=== PATIENT | male | born 2005 | race Caucasian/White ===

== ENCOUNTER 2025-05-18 19:43 | Inpatient (IN) | payer MEDICAID, SELFPAY ==
--- OUTSIDE RECORDS SUMMARY | 2020-11-16 03:00 | XMS_ITS | Continuity of Care Document ---
Author Organization [facility] Address [address] [id number] [address] Phone Care Team Providers Care Instructional Systems Designer Name Role Phone Joaquin Lovelace DDS Unavailable Unavailable Allergies, Adverse Reactions, Alerts Substance Reaction Status Criticality morphine Active No Information Procedures Procedure Date Limited Oral Evaluation Problem Focused EDR Approval Note Advance Directives Directive Yes / No Effective Date File Name No Information Encounters Encounter Description Practice Location Reason(s) For Visit Diagnoses Date Provider Providers Copied on Encounter [facility], [id number], [id number], [place] tel:[phone] [facility] Encounter for dental exam and cleaning w/o abnormal findings Radu Nuñez. [address] [place], [address], [place]. tel:[phone] Referring Provider: Joaquin Bah, [address] [place], [address]. tel:[phone] Family History Family Member Type Diagnosis Age At Onset No Information Payers Payer name Insurance type Covered libertarian ID Authoriza tifady(s) D [employer] CI [id number] Social History Type Description Quantity Date Captured Comments Alcohol Use Details Unknown Caffeine Use Details Unknown Tobacco Use Status No Information Smoking Status No Information Sex Male Sexual Orientation Heterosexual Gender Identity Male Chief Complaint And Reason For Visit No Information Reason For Referral Reason For Referral No Information History Of Present Illness Encounter Date Complaint History Of Prese nt Illness No Information Functional Status Date Functional Assessmen t No Information Instructions Date Instruction Additional Infor mation No Information Assessments Type Assessment Date No Information Patient Care Teams Name Effective Dates (start - stop) Status Members No Information
[2025-05-18 19:46] VITALS: BP 144/87; PULSE 80; RESP 16; TEMP 36.9; O2SAT 95; BMI 27.4
--- NOTE | 2025-05-18 19:46 | W.ED.PSYCHS ---
Documented by User: TONI Funez 05/18/25 20:24 HPI - Psych General: Chief Complaint: Psychiatric Symptoms Stated Complaint: MHE Time Seen by Provider: 05/18/25 19:44 Source: patient Mode of arrival: ambulatory Limitations: no limitations History of Present Illness: Patient is a 19-year-old male presents to ED today for complaint of depression and suicidal ideation. Patient states he went into the [facility] earlier today with a knife with a plan to slit his wrists in a suicide attempt. He had written several suicide notes to his grandmother, mother, and /child. Patient states he is struggling with anger and moods. He states he is trying to work it out with his for the sake of their 5-month-old child. Patient states he is on medications to help with depression. He denies homicidal ideations. Denies hallucinations. He states he does hold down a job at the [employer] [place] in [place] [facility] [place]. complaint: suicidal ideation and feels depressed Onset (ago): day(s) Duration: constant History of same: Yes Relieving factors: none Exacerbating factors: other (family stress) Context: significant life stressor Associated psychiatric symptoms: depression and suicidal ideation Associated symptoms: Reports depression and suicidal ideation; Deny auditory hallucinations, visual hallucinations or homicidal ideation Treatments prior to arrival: none If self harm: admits thoughts of self harm, has plan and has acted on plan Related Data Allergies Allergy/AdvReac Type Severity Reaction Status Date / Time morphine Allergy ALGY-Anaphy Verified 05/18/25 19:55 laxis Review of Systems Const: Denies: fever(s) or chills Card: Denies: chest pain, palpitations, lightheadedness or syncope Resp: Denies: dyspnea GI: Denies: abdominal pain, nausea, vomiting or diarrhea Skin/Breast: Denies: rash Neuro: Denies: headache(s) Psych: Reports: anxiety, depression, hopelessness and suicidal ideation; Denies: visual hallucinations, auditory hallucinations or homicidal ideation Physical Exam Const: COMMON NORMALS: no acute distress, average body habitus, patient oriented x3, no limitations, healthy appearing, alert and well nourished GENERAL APPEARANCE: cooperative ORIENTATION/CONSCIOUSNESS: Yes awake, Yes oriented to person, Yes oriented to place and Yes oriented to time Resp: COMMON NORMALS: normal respiratory effort and clear to auscultation bilaterally AUSCULTATION: clear to auscultation bilaterally Cardio: COMMON NORMALS: regular rate and regular rhythm RATE: regular rate RHYTHM: regular rhythm Neuro: COMMON NORMALS: patient oriented x3, moves all extremities, no focal motor deficits, no sensory deficits noted and gait normal SENSORIUM/ORIENTATION: Yes alert, Yes oriented to person, Yes oriented to place and Yes oriented to time Psych: COMMON NORMALS: mental status grossly normal, Normal thought process present, cooperative, normal affect, speech normal, activity/motor behavior normal, denies hallucinations and denies homicidal ideation APPEARANCE: Yes grossly normal ATTITUDE: Yes calm ACTIVITY/MOTOR BEHAVIOR: Yes appropriate eye contact and No psychomotor agitation SPEECH: Yes normal speech MOOD & AFFECT: Yes euthymic mood THOUGHT PROCESS: Normal thought process present MEMORY/COGNITION: Yes memory grossly intact and Yes cognition grossly intact INSIGHT: Good insight present (Psych) JUDGEMENT: Good judgement present (Psych) Course Consultations: Consultation #1: Dr. Walter-admits to NPU Vital Signs: Vital signs: Vital Signs Temperature 98.4 F 05/18/25 19:46 Pulse Rate 80 05/18/25 19:46 Respiratory Rate 16 05/18/25 19:46 Blood Pressure 144/87 05/18/25 19:46 Pulse Oximetry 95 05/18/25 19:46 Oxygen Delivery Me thod Room Air 05/18/25 19:46 MDM - Psych Medical Decision Making Patient will be placed on a 96-hour hold. He will be admitted to NPU to Dr. Walter. Medical Records I reviewed the patient's medical records. Lab Data I reviewed the patient's lab results. 05/18/25 19:59 05/18/25 19:59 Laboratory Results WBC 14.52 10^3/uL (3.29-11.43) H 05/18/25 19:59 RBC 6.06 10^6/uL (3.85-5.65) H 05/18/25 19:59 Hgb 17.30 g/dL (11.27-16.99) H 05/18/25 19:59 Hct 50.5 % (37-53) 05/18/25 19:59 MCV 83.3 fl (82-101) 05/18/25 19:59 MCH 28.5 pg (27-33) 05/18/25 19:59 MCHC 34.3 g/dL (30-55) 05/18/25 19:59 RDW 12.5 % (12.1-15.1) 05/18/25 19:59 Plt Count 303 10^3/cmm (157-399) 05/18/25 19:59 MPV 9.2 fL (7.4-10.4) 05/18/25 19:59 Neut % (Auto) 68.5 % 05/18/25 19:59 Lymph % (Auto) 23.5 % 05/18/25 19:59 [place] % (Auto) 5.9 % 05/18/25 19:59 Eos % (Auto) 1.0 % 05/18/25 19:59 Baso % (Auto) 0.5 % 05/18/25 19:59 Neut # (Auto) 9.96 10^3/uL (1.8-7.7) H 05/18/25 19:59 Lymph # (Auto) 3.4 10^3/uL (0.8-4.8) 05/18/25 19:59 [place] # (Auto) 0.9 10^3/uL (0.2-0.9) 05/18/25 19:59 Eos # (Auto) 0.2 10^3/uL (0.0-0.8) 05/18/25 19:59 Baso # (Auto) 0.1 10^3/uL (0.0-0.1) 05/18/25 19:59 Nucleated RBC % (auto) 0 % 05/18/25 19:59 Nucleated RBCs # 0.0 /100WBC 05/18/25 19:59 Sodium 140 mmol/L (136-145) 05/18/25 19:59 Potassium 4.1 mmol/L (3.5-5.1) 05/18/25 19:59 Chloride 102 mmol/L (98-107) 05/18/25 19:59 Carbon Dioxide 25 mmol/L (22-29) 05/18/25 19:59 Anion Gap 17.1 (5-19) 05/18/25 19:59 BUN 10 mg/dL (6-20) 05/18/25 19:59 Creatinine 0.9 mg/dL (0.7-1.2) 05/18/25 19:59 GFR Calculation 106.5 mL/min (90-130) 05/18/25 19:59 Glucose 106 mg/dL (65-115) 05/18/25 19:59 Calculated Osmolality 289 mOsm/kg (285-295) 05/18/25 19:59 Calcium 9.9 mg/dL (8.5-10.5) 05/18/25 19:59 Total Bilirubin 0.4 mg/dL (0.15-1.2) 05/18/25 19:59 AST 24 U/L (0-40) 05/18/25 19:59 ALT 37 U/L (0-41) 05/18/25 19:59 Alkaline Phosphatase 95 U/L (40-130) 05/18/25 19:59 Total Protein 8.3 g/dL (6.6-8.7) 05/18/25 19:59 Albumin 4.7 g/dL (3.5-5.2) 05/18/25 19:59 Globulin 3.6 g/dL (1.3-4.6) 05/18/25 19:59 No radiology studies performed this visit Discharge Plan Discharge Patient Disposition: Admitted As Inpatient Clinical Impression: Suicidal ideation Depression Qualifiers: Depression Type: major depressive disorder Major depression recurrence: recurrent Active/Remission status: currently active Major depression episode severity: severe Psychotic features: without psychotic features Qualified Code(s): F33.2 - Major depressive disorder, recurrent severe without psychotic features Condition: Stable Coding Level of Care Code ED Import Export Agent for Chg Fwd Documented by User: Jalen Flores DO 05/18/25 20:28 HPI - Psych General: Chief Complaint: Psychiatric Symptoms Stated Complaint: MHE Time Seen by Provider: 05/18/25 19:44 Related Data Allergies Allergy/AdvReac Type Severity Reaction Status Date / Time morphine Allergy ALGY-Anaphy Verified 05/18/25 19:55 laxis Course Vital Signs: Vital signs: Vital Signs Temperature 98.4 F 05/18/25 19:46 Pulse Rate 80 05/18/25 19:46 Respiratory Rate 16 05/18/25 19:46 Blood Pressure 144/87 05/18/25 19:46 Pulse Oximetry 95 05/18/25 19:46 Oxygen Delivery Me thod Room Air 05/18/25 19:46 MDM - Psych Medical Decision Making Patient will be placed on a 96-hour hold. He will be admitted to NPU to Dr. Walter. Chart reviewed and patient discussed with midlevel. Agree with assessment and plan. Lab Data 05/18/25 19:59 05/18/25 19:59 Laboratory Results WBC 14.52 10^3/uL (3.29-11.43) H 05/18/25 19:59 RBC 6.06 10^6/uL (3.85-5.65) H 05/18/25 19:59 Hgb 17.30 g/dL (11.27-16.99) H 05/18/25 19:59 Hct 50.5 % (37-53) 05/18/25 19:59 MCV 83.3 fl (82-101) 05/18/25 19:59 MCH 28.5 pg (27-33) 05/18/25 19:59 MCHC 34.3 g/dL (30-55) 05/18/25 19:59 RDW 12.5 % (12.1-15.1) 05/18/25 19:59 Plt Count 303 10^3/cmm (157-399) 05/18/25 19:59 MPV 9.2 fL (7.4-10.4) 05/18/25 19:59 Neut % (Auto) 68.5 % 05/18/25 19:59 Lymph % (Auto) 23.5 % 05/18/25 19:59 [place] % (Auto) 5.9 % 05/18/25 19:59 Eos % (Auto) 1.0 % 05/18/25 19:59 Baso % (Auto) 0.5 % 05/18/25 19:59 Neut # (Auto) 9.96 10^3/uL (1.8-7.7) H 05/18/25 19:59 Lymph # (Auto) 3.4 10^3/uL (0.8-4.8) 05/18/25 19:59 [place] # (Auto) 0.9 10^3/uL (0.2-0.9) 05/18/25 19:59 Eos # (Auto) 0.2 10^3/uL (0.0-0.8) 05/18/25 19:59 Baso # (Auto) 0.1 10^3/uL (0.0-0.1) 05/18/25 19:59 Nucleated RBC % (auto) 0 % 05/18/25 19:59 Nucleated RBCs # 0.0 /100WBC 05/18/25 19:59 Sodium 140 mmol/L (136-145) 05/18/25 19:59 Potassium 4.1 mmol/L (3.5-5.1) 05/18/25 19:59 Chloride 102 mmol/L (98-107) 05/18/25 19:59 Carbon Dioxide 25 mmol/L (22-29) 05/18/25 19:59 Anion Gap 17.1 (5-19) 05/18/25 19:59 BUN 10 mg/dL (6-20) 05/18/25 19:59 Creatinine 0.9 mg/dL (0.7-1.2) 05/18/25 19:59 GFR Calculation 106.5 mL/min (90-130) 05/18/25 19:59 Glucose 106 mg/dL (65-115) 05/18/25 19:59 Calculated Osmolality 289 mOsm/kg (285-295) 05/18/25 19:59 Calcium 9.9 mg/dL (8.5-10.5) 05/18/25 19:59 Total Bilirubin 0.4 mg/dL (0.15-1.2) 05/18/25 19:59 AST 24 U/L (0-40) 05/18/25 19:59 ALT 37 U/L (0-41) 05/18/25 19:59 Alkaline Phosphatase 95 U/L (40-130) 05/18/25 19:59 Total Protein 8.3 g/dL (6.6-8.7) 05/18/25 19:59 Albumin 4.7 g/dL (3.5-5.2) 05/18/25 19:59 Globulin 3.6 g/dL (1.3-4.6) 05/18/25 19:59 Discharge Plan Discharge Patient Disposition: Admitted As Inpatient Clinical Impression: Suicidal ideation Depression Qualifiers: Depression Type: major depressive disorder Major depression recurrence: recurrent Active/Remission status: currently active Major depression episode severity: severe Psychotic features: without psychotic features Qualified Code(s): F33.2 - Major depressive disorder, recurrent severe without psychotic features Condition: Stable Coding Level of Care Code ED Import Export Agent for Sergio Gorman
[2025-05-18 20:06] LABS: Hematocrit 50.5 % (37-53); Hemoglobin 17.30 g/dL (11.27-16.99); Mean Corpuscular HGB Conc 34.3 g/dL (30-55); Mean Corpuscular Hemoglobin 28.5 pg (27-33); Mean Corpuscular Volume 83.3 fl (82-101); Nucleated Red Blood Cells % 0 %; Platelet Count 303 10^3/cmm (157-399); Red Blood Count 6.06 10^6/uL (3.85-5.65); White Blood Count 14.52 10^3/uL (3.29-11.43)
--- OUTSIDE RECORDS SUMMARY | 2025-05-18 20:13 | XMS_ITS | Encounter Summary ---
Author Organization [facility] Address [address] [place] [address] Care Team Providers Care Publishing Manager Name Role Phone Shade Snow MD Primary Care Provider [phone] [phone] Encounter Details Date Type Department Care Team (Latest Contact Info) Description 06/27/2004 Outpatient Historical [facility] [address] [place] [address] Celia Guzman, ELECTRONICS ASSEMBLER [address] [place] [address] ACUTE URI NOS (Primary Dx) Social History Tobacco Use Types Packs/Day Years Used Date Smoking Tobacco: Never Assessed Sex and Gender Information Value Date Recorded Sex Assigned at Not on file 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
--- OUTSIDE RECORDS SUMMARY | 2025-05-18 20:13 | XMS_ITS | Encounter Summary ---
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
--- OUTSIDE RECORDS SUMMARY | 2025-05-18 20:13 | XMS_ITS | Encounter Summary ---
Author Organization [facility] Address [address] [place] [address] Care Team Providers Care Patent Searcher Name Role Phone Shade Snow MD Primary Care Provider [phone] [phone] Encounter Details Date Type Department Care Team (Latest Contact Info) Description 11/01/2005 Outpatient Historical [facility] [address] [place] [address] Celia Guzman, ACID CUTTER [address] [place] [address] ACUTE URI NOS (Primary Dx) Social History Tobacco Use Types Packs/Day Years Used Date Smoking Tobacco: Never Assessed Sex and Gender Information Value Date Recorded Sex Assigned at Not on file 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
--- OUTSIDE RECORDS SUMMARY | 2025-05-18 20:13 | XMS_ITS | Encounter Summary ---
Author Organization [facility] Address [address] [place] [address] Care Team Providers Care Shoeshiner Name Role Phone Shade Snow MD Primary Care Provider [phone] [phone] Encounter Details Date Type Department Care Team (Latest Contact Info) Description 06/06/2006 Outpatient Historical 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
--- OUTSIDE RECORDS SUMMARY | 2025-05-18 20:13 | XMS_ITS | Encounter Summary ---
Author Organization [facility] Address [address] [place] [address] Care Team Providers Care Board Stacker Name Role Phone Shade Snow MD Primary Care Provider [phone] Encounter Details Date Type Department Care Team (Latest Contact Info) Description 01/23/2005 Outpatient Historical [facility] [address] [place] [address] Celia Guzman, ICE CREAM SHOP ASSOCIATE [address] [place] [address] OTITIS MEDIA NOS (Primary Dx) Social History Tobacco Use Types Packs/Day Years Used Date Smoking Tobacco: Never Assessed Sex and Gender Information Value Date Recorded Sex Assigned at Not on file 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
--- OUTSIDE RECORDS SUMMARY | 2025-05-18 20:13 | XMS_ITS | Encounter Summary ---
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
--- OUTSIDE RECORDS SUMMARY | 2025-05-18 20:13 | XMS_ITS | Encounter Summary ---
Author Organization [facility] Address [address] [place] [address] Care Team Providers Care Property Appraiser Name Role Phone Shade Snow MD Primary Care Provider [phone] [phone] Encounter Details Date Type Department Care Team (Latest Contact Info) Description 12/26/2004 Outpatient Historical [facility] [address] [place] [address] Celia Guzman, DENTAL CHAIR ASSEMBLER [address] [place] [address] OTITIS MEDIA NOS (Primary Dx); ACUTE PHARYNGITIS Social History Tobacco Use Types Packs/Day Years Used Date Smoking Tobacco: Never Assessed Sex and Gender Information Value Date Recorded Sex Assigned at Not on file 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
--- OUTSIDE RECORDS SUMMARY | 2025-05-18 20:13 | XMS_ITS | Encounter Summary ---
Author Organization [facility] Address [address] [place] [address] Care Team Providers Care Poultry Helper Name Role Phone Shade Snow MD Primary Care Provider [phone] [phone] Encounter Details Date Type Department Care Team (Latest Contact Info) Description 07/01/2005 Outpatient Historical [facility] [address] [place] [address] Celia Guzman, RN LPN CNA [address] [place] [address] OTITIS MEDIA NOS (Primary Dx); ACUTE PHARYNGITIS Social History Tobacco Use Types Packs/Day Years Used Date Smoking Tobacco: Never Assessed Sex and Gender Information Value Date Recorded Sex Assigned at Not on file Legal 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
--- OUTSIDE RECORDS SUMMARY | 2025-05-18 20:13 | XMS_ITS | Encounter Summary ---
Author Organization [facility] Address [address] [place] [address] Care Team Providers Care Php Consultant Name Role Phone Shade Snow MD Primary Care Provider [phone] [phone] Encounter Details Date Type Department Care Team (Latest Contact Info) Description 10/22/[address] 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 [address] [place] [address] PCP - General Family Practice 06/05/16 documented as of this encounter
--- OUTSIDE RECORDS SUMMARY | 2025-05-18 20:13 | XMS_ITS | Encounter Summary ---
Author Organization [facility] Address [address] [place] [address] Care Team Providers Care Lcsw Name Role Phone Shade Snow MD Primary Care Provider +1 -[phone] Encounter Details Date Type Department Care Team (Latest Contact Info) Description 12/31/2004 Outpatient Historical [facility] [address] [place] [address] Celia Guzman, SEAFOOD SERVICE TEAM MEMBER [address] [place] [address] ACUTE URI NOS (Primary Dx) Social History Tobacco Use Types Packs/Day Years Used Date Smoking Tobacco: Never Assessed Sex and Gender Information Value Date Recorded Sex Assigned at Not on file Legal Sex Male 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
--- OUTSIDE RECORDS SUMMARY | 2025-05-18 20:13 | XMS_ITS | Encounter Summary ---
Author Organization [facility] Address [address] [place] [address] Care Team Providers Care Jump Roll Operator Name Role Phone Shade Snow MD Primary Care Provider +1 -[phone] Encounter Details Date Type Department Care Team (Latest Contact Info) Description 07/17/2005 Outpatient Historical [facility] [address] [place] [address] Celia Guzman, STUNNER [address] [place] [address] ACUTE URI NOS (Primary Dx) Social History Tobacco Use Types Packs/Day Years Used Date Smoking Tobacco: Never Assessed Sex and Gender Information Value Date Recorded Sex Assigned at Not on file Legal 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
--- OUTSIDE RECORDS SUMMARY | 2025-05-18 20:13 | XMS_ITS | Encounter Summary ---
Author Organization [facility] Address [address] [place] [address] Care Team Providers Care Assistant Women'S Tennis Coach Name Role Phone Shade Snow MD Primary Care Provider +1 -[phone] Encounter Details Date Type Department Care Team (Latest Contact Info) Description 02/25/2005 Outpatient Historical [facility] [address] [place] [address] Celia Guzman, GROWTH MEDIA MIXER MUSHROOM [address] [place] [address] Dermatitis due to plant (Primary Dx); DIARRHEA NOS Social History Tobacco Use Types Packs/Day Years Used Date Smoking Tobacco: Never Assessed Sex and Gender Information Value Date Recorded Sex Assigned at Not on file Legal Sex Male 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
--- OUTSIDE RECORDS SUMMARY | 2025-05-18 20:13 | XMS_ITS | Encounter Summary ---
Author Organization [facility] Address [address] [place] [address] Care Team Providers Care Folder Inspector Name Role Phone Shade Snow MD Primary Care Provider +1 -[phone] Encounter Details Date Type Department Care Team (Latest Contact Info) Description 10/16/2005 Outpatient Historical [facility] [address] [place] [address] Celia Guzman, GETTERING OPERATOR [address] [place] [address] STREP SORE THROAT (Primary Dx) Social History Tobacco Use Types Packs/Day Years Used Date Smoking Tobacco: Never Assessed Sex and Gender Information Value Date Recorded Sex Assigned at Not on file Legal Sex Male 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
--- OUTSIDE RECORDS SUMMARY | 2025-05-18 20:13 | XMS_ITS | Encounter Summary ---
Author Organization [facility] Address [address] [place] [address] Care Team Providers Care Solid Glass Rod Dowel Machine Operator Name Role Phone Shdae Snow MD Primary Care Provider +1 [phone] Encounter Details Date Type Department Care Team (Latest Contact Info) Description 06/25/2004 Outpatient Historical [facility] [address] [place] [address] Celia Guzman, PROJECT BUYER [address] [place] [address] ACUTE URI NOS (Primary Dx) Social History Tobacco Use Types Packs/Day Years Used Date Smoking Tobacco: Never Assessed Sex and Gender Information Value Date Recorded Sex Assigned at Not on file Legal 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
--- OUTSIDE RECORDS SUMMARY | 2025-05-18 20:13 | XMS_ITS | Encounter Summary ---
Author Organization [facility] Address [address] [place] [address] Care Team Providers Care Sound Technician Name Role Phone Shade Snow MD Primary Care Provider +1 [phone] Encounter Details Date Type Department Care Team (Latest Contact Info) Description 09/12/2004 Outpatient Historical [facility] [address] [place] [address] Celia Guzman, RECLAIMER [address] [place] [address] ACUTE BRONCHITIS (Primary Dx) Social History Tobacco Use Types Packs/Day Years Used Date Smoking Tobacco: Never Assessed Sex and Gender Information Value Date Recorded Sex Assigned at Not on file Legal Sex Male 4:48 AM SPLIT AND DRUM ROOM SUPERVISOR Gender Identity Not on file Sexual Orientation Not on file documented as of this encounter Plan of Treatment Not on file documented as of this encounter Visit Diagnoses Diagnosis Acute bronchitis- Primary documented in this encounter Care Teams Sound Technician Relationship Specialty Start Date End Date Shade Snow MD [address] [facility] [place] [address] PCP - General Family Practice 06/05/16 documented as of this encounter
--- OUTSIDE RECORDS SUMMARY | 2025-05-18 20:13 | XMS_ITS | Encounter Summary ---
Author Organization [facility] Address [address] [place] [address] Care Team Providers Care Consumer Marketing Manager Name Role Phone Shade Snow MD Primary Care Provider +1 [phone] Encounter Details Date Type Department Care Team (Latest Contact Info) Description 09/19/2004 Outpatient Historical [facility] [address] [place] [address] Celia Guzman, CHEMIC MANGLER [address] [place] [address] OTITIS MEDIA NOS (Primary Dx) Social History Tobacco Use Types Packs/Day Years Used Date Smoking Tobacco: Never Assessed Sex and Gender Information Value Date Recorded Sex Assigned at Not on file Legal Sex Male 4:48 AM CUSTOM MILLER Gender Identity Not on file Sexual Orientation Not on file documented as of this encounter Plan of Treatment Not on file documented as of this encounter Visit Diagnoses Diagnosis Unspecified otitis media- Primary documented in this encounter Care Teams Consumer Marketing Manager Relationship Specialty Start Date End Date Shade Snow MD [address] [facility] 60 [place] [address] PCP - General Family Practice 06/05/16 documented as of this encounter
--- OUTSIDE RECORDS SUMMARY | 2025-05-18 20:13 | XMS_ITS | Encounter Summary ---
Author Organization [facility] Address [address] [place] [address] Care Team Providers Care Certified Court/Medical Interpreter Name Role Phone Shade Snow MD Primary Care Provider +1 [phone] Encounter Details Date Type Department Care Team (Latest Contact Info) Description 10/03/2004 Outpatient Historical [facility] [address] [place] [address] Celia Guzman, SWITCH OPERATORS SUPERVISOR [address] [place] [address] TEETHING SYNDROME (Primary Dx) Social History Tobacco Use Types Packs/Day Years Used Date Smoking Tobacco: Never Assessed Sex and Gender Information Value Date Recorded Sex Assigned at Not on file Legal Sex Male 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
--- OUTSIDE RECORDS SUMMARY | 2025-05-18 20:13 | XMS_ITS | Encounter Summary ---
Author Organization [facility] Address [address] [place] [address] Care Team Providers Care Food Service Utility Worker Name Role Phone Shade Snow MD Primary Care Provider +1 [phone] Encounter Details Date Type Department Care Team (Latest Contact Info) Description 10/29/2004 Outpatient Historical [facility] [address] [place] [address] Celia Guzman, INSPECTOR MATERIALS AND PROCESSES [address] [place] [address] ACUTE URI NOS (Primary Dx) Social History Tobacco Use Types Packs/Day Years Used Date Smoking Tobacco: Never Assessed Sex and Gender Information Value Date Recorded Sex Assigned at Not on file Legal Sex Male 4:48 AM 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
--- OUTSIDE RECORDS SUMMARY | 2025-05-18 20:13 | XMS_ITS | Encounter Summary ---
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
--- OUTSIDE RECORDS SUMMARY | 2025-05-18 20:13 | XMS_ITS | Encounter Summary ---
Author Organization [facility] Address [address] [place] [address] Care Team Providers Care Telephone Betting Clerk Name Role Phone Shade Snow MD Primary Care Provider +1 -[phone] Encounter Details Date Type Department Care Team (Latest Contact Info) Description 09/06/2004 Outpatient Historical [facility] Family Medicine [address] [address] Celia Guzman, UTILIZATION MANAGEMENT RN [address] [place] [address] OTITIS MEDIA NOS (Primary Dx); ACUTE PHARYNGITIS Social History Tobacco Use Types Packs/Day Years Used Date Smoking Tobacco: Never Assessed Sex and Gender Information Value Date Recorded Sex Assigned at Not on file Legal Sex Male 4:48 AM QA DEVELOPER Gender Identity Not on file Sexual Orientation Not on file documented as of this encounter Plan of Treatment Not on file documented as of this encounter Visit Diagnoses Diagnosis Unspecified otitis media- Primary Acute pharyngitis documented in this encounter Care Teams Telephone Betting Clerk Relationship Specialty Start Date End Date Shade Snow MD [address] [phone] PCP - General Family Practice 06/05/16 documented as of this encounter
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
--- OUTSIDE RECORDS SUMMARY | 2025-05-18 20:13 | XMS_ITS | Encounter Summary ---
Author Organization [facility] Address [address] [place] [address] Care Team Providers Care Supervisor Prep Name Role Phone Shade Snow MD Primary Care Provider +1 -[phone] Encounter Details Date Type Department Care Team (Latest Contact Info) Description 09/10/2004 Outpatient Historical [facility] [address] [place] [address] Celia Guzman, AIRCRAFT MAINTENANCE MANAGER [address] [place] [address] ACUTE URI NOS (Primary Dx) Social History Tobacco Use Types Packs/Day Years Used Date Smoking Tobacco: Never Assessed Sex and Gender Information Value Date Recorded Sex Assigned at Not on file Legal Sex Male 4:48 AM CAMERA TUNING ENGINEER Gender Identity Not on file Sexual Orientation Not on file documented as of this encounter Plan of Treatment Not on file documented as of this encounter Visit Diagnoses Diagnosis Acute upper respiratory infections of unspecified site- Primary documented in this encounter Care Teams Supervisor Prep Relationship Specialty Start Date End Date Shade Snow MD [address] [facility] [address] [place] [address] PCP - General Family Practice 06/05/16 documented as of this encounter
--- OUTSIDE RECORDS SUMMARY | 2025-05-18 20:13 | XMS_ITS | Encounter Summary ---
Author Organization [facility] Address [address] [place] [address] Care Team Providers Care Play Writer Name Role Phone Shade Snow MD Primary Care Provider +1 -[phone] Encounter Details Date Type Department Care Team (Latest Contact Info) Description 11/22/2004 Outpatient Historical [facility] Family Medicine [place] [address] [address] Celia Guzman, DERRICK BOAT LEVERMAN [address] [place] [address] DIARRHEA NOS (Primary Dx) Social History Tobacco Use Types Packs/Day Years Used Date Smoking Tobacco: Never Assessed Sex and Gender Information Value Date Recorded Sex Assigned at Not on file Legal Sex Male 4:48 AM GROUP DIRECTOR Gender Identity Not on file Sexual Orientation Not on file documented as of this encounter Plan of Treatment Not on file documented as of this encounter Visit Diagnoses Diagnosis Diarrhea- Primary documented in this encounter Care Teams Play Writer Relationship Specialty Start Date End Date Shade Snow MD [address] [address] PCP - General Family Practice 06/05/16 documented as of this encounter
--- OUTSIDE RECORDS SUMMARY | 2025-05-18 20:13 | XMS_ITS | Encounter Summary ---
Author Organization [facility] Address [address] [place] [address] Care Team Providers Care Speech Pathologist Assistant Name Role Phone Shade Snow MD Primary Care Provider +1 -[phone] Encounter Details Date Type Department Care Team (Late st Contact Info) Description 11/19/[address] [facility] Emergency Department [address] [place] [address] Radha Zepeda MD [address] [place] [address] NONINFEC GASTROENTERIT NEC (Primary Dx) Social History Tobacco Use Types Packs/Day Years Used Date Smoking Tobacco: Never Assessed Sex and Gender Information Value Date Recorded Sex Assigned at Not on file Legal Sex Male 4:48 AM WHEAT INSPECTOR Gender Identity Not on file Sexual Orientation Not on file documented as of this encounter Plan of Treatment Not on file documented as of this encounter Procedures Procedure Name Priority Date/Time Associated Diagnosis Comments BASIC METABOLIC PANEL Routine 11/19/2004 11:34 PM WHEAT INSPECTOR documented in this encounter Results * BASIC METABOLIC PANEL (11/19/2004 11:34 PM WHEAT INSPECTOR) GLUCOSE 69 60 - 100 mg/dL INTERFACE SYSTEM BUN 12 9 - 20 mg/dL INTERFACE SYSTEM CREATININE 0.3 0.2 - 0.7 mg/dL INTERFACE SYSTEM SODIUM 139 136 - 145 mEq/L INTERFACE SYSTEM POTASSIUM 4.4 3.5 - 5.0 mEq/L INTERFACE SYSTEM CHLORIDE 104 95 - 110 mEq/L INTERFACE SYSTEM CO2 24 22 - 32 mmol/l INTERFACE SYSTEM ANION GAP 15 9 - 20 mEq/L INTERFACE SYSTEM OSMOLALITY, CALCULATED 285 275 - 295 mOsm/Kg INTERFACE SYSTEM CALCIUM 9.6 8.4 - 10.5 mg/dL INTERFACE SYSTEM 11/19/2004 11:3 4 PM WHEAT INSPECTOR Radha Zepeda MD CHEMISTRY ORDERABLES Final Result INTERFACE SYSTEM Refer to clinic/hospital department documented in this encounter Visit Diagnoses Diagnosis Other and unspecified noninfectious gastroenteritis and colitis(558.9)- Primary Other and unspecified noninfectious gastroenteritis and colitis documented in this encounter Care Teams Speech Pathologist Assistant Relationship Specialty Start Date End Date Shade Snow MD [address] [address] PCP - General Family Practice 06/05/16 documented as of this encounter
--- OUTSIDE RECORDS SUMMARY | 2025-05-18 20:13 | XMS_ITS | Encounter Summary ---
Author Organization [facility] Address [address] [place] [address] Care Team Providers Care Compressor Station Chief Engineer Name Role Phone Shade Snow MD Primary Care Provider +1 -[phone] Encounter Details Date Type Department Care Team (Latest Contact Info) Description 08/30/2005 Outpatient Historical [facility] [address] [place] [address] Celia Guzman, FISHERY BIOLOGIST [address] [place] [address] ACUTE URI NOS (Primary Dx) Social History Tobacco Use Types Packs/Day Years Used Date Smoking Tobacco: Never Assessed Sex and Gender Information Value Date Recorded Sex Assigned at Not on file Legal Sex Male 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
--- OUTSIDE RECORDS SUMMARY | 2025-05-18 20:14 | XMS_ITS | Encounter Summary ---
Author Organization [facility] Address [address] [place] [address] Care Team Providers Care Paperhanger Assistant Name Role Phone Shade Snow MD Primary Care Provider +1 -[phone] Encounter Details Date Type Department Care Team (Latest Contact Info) Description 05/14/2004 Outpatient Historical [facility] [address] [place] [address] Celia Guzman, MANIPULATOR OPERATOR [address] [place] [address] ALLERGY, UNSPECIFIED (Primary Dx) Social History Tobacco Use Types Packs/Day Years Used Date Smoking Tobacco: Never Assessed Sex and Gender Information Value Date Recorded Sex Assigned at Not on file Legal Sex Male 4:48 AM GYROSCOPE REPAIRER Gender Identity Not on file Sexual Orientation Not on file documented as of this encounter Plan of Treatment Not on file documented as of this encounter Visit Diagnoses Diagnosis Allergy, unspecified not elsewhere classified- Primary documented in this encounter Care Teams Paperhanger Assistant Relationship Specialty Start Date End Date Shade Snow MD [address] [facility] 60 [place] [address] PCP - General Family Practice 06/05/16 documented as of this encounter
--- OUTSIDE RECORDS SUMMARY | 2025-05-18 20:14 | XMS_ITS | Encounter Summary ---
Author Organization [facility] Address [address] [place] [address] Care Team Providers Care Digital Marketing Associate Name Role Phone Shade Snow MD Primary Care Provider +1 -[phone] Encounter Details Date Type Department Care Team (Latest Contact Info) Description 06/13/2006 Outpatient Historical [facility] [address] [place] [address] Celia Guzman, 3D ANIMATOR [address] [place] [address] Unspecified Infective Otitis Externa (Primary Dx) Social History Tobacco Use Types Packs/Day Years Used Date Smoking Tobacco: Never Assessed Sex and Gender Information Value Date Recorded Sex Assigned at Not on file Legal Sex Male 4:48 AM PRODUCT PICKER Gender Identity Not on file Sexual Orientation Not on file documented as of this encounter Plan of Treatment Not on file documented as of this encounter Visit Diagnoses Diagnosis Infective otitis externa, unspecified- Primary documented in this encounter Care Teams Digital Marketing Associate Relationship Specialty Start Date End Date Shade Snow MD [address] [facility] [address] [place] [address] PCP - General Family Practice 06/05/16 documented as of this encounter
--- OUTSIDE RECORDS SUMMARY | 2025-05-18 20:14 | XMS_ITS | Encounter Summary ---
Author Organization [facility] Address [address] [place] [address] Care Team Providers Care Manager Pool Name Role Phone Shade Snow MD Primary Care Provider +1 -[phone] Encounter Details Date Type Department Care Team (Latest Contact Info) Description 03/21/2004 Outpatient Historical [facility] [address] [place] [address] Celia Guzman, DISTILLERY WORKER [address] [place] [address] ACUTE URI NOS (Primary Dx) Social History Tobacco Use Types Packs/Day Years Used Date Smoking Tobacco: Never Assessed Sex and Gender Information Value Date Recorded Sex Assigned at Not on file Legal Sex Male 4:48 AM MANAGER HEAVY EQUIPMENT Gender Identity Not on file Sexual Orientation Not on file documented as of this encounter Plan of Treatment Not on file documented as of this encounter Visit Diagnoses Diagnosis Acute upper respiratory infections of unspecified site- Primary documented in this encounter Care Teams Manager Pool Relationship Specialty Start Date End Date Shade Snow MD [address] [facility] [address] [place] [address] PCP - General Family Practice 06/05/16 documented as of this encounter
--- OUTSIDE RECORDS SUMMARY | 2025-05-18 20:14 | XMS_ITS | Encounter Summary ---
Author Organization [facility] Address [address] [place] [address] Care Team Providers Care Water Hauler Name Role Phone Shade Snow MD Primary Care Provider +1 -[phone] Encounter Details Date Type Department Care Team (Latest Contact Info) Description 2003 Outpatient Historical [facility] [address] [phone] Kike Ramirez MD [address] [phone] Routine circumcision (Primary Dx) Social History Tobacco Use Types Packs/Day Years Used Date Smoking Tobacco: Never Assessed Sex and Gender Information Value Date Recorded Sex Assigned at Not on file Legal Sex Male 4:48 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
--- OUTSIDE RECORDS SUMMARY | 2025-05-18 20:14 | XMS_ITS | Clinical Summary ---
Author Organization [facility] Address [address] [place] [address] Care Team Providers Care Final Finisher Forging Dies Name Role Phone Shade Snow MD Primary Care Provider +1 -[phone] Allergies Active Allergy Reactions Criticality Noted Date Comments Morphine Other (See Comments) 07/24/2009 Medications No known medications Active Problems Problem Noted Date Diagnosed Date Headache(784.0) 11/07/2010 Immunizations Immunization Administration Dates Next Due (M-M-R II/PRIORIX)(12 MO UP) MEASLES, MUMPS AND RUBELLA VIRUS VACCINE, 0.5 ML IM/SUBCUT 01/10/2009 (VARIVAX)(12 MOS UP)VARICELL A VIRUS VACCINE (PF) 0.5 ML, SUB CUT 01/10/2009 Dt Dtp Dtap Vaccine 04/09/2004,02/08/2004,2003 HIB, Unspecified Formulation 04/09/2004,02/08/20 04,2003 Hepatitis B Vaccine 02/08/2004,2003,2002 IPV/OPV 2003 Pneumococcal 7-valent conjugate vaccine IM 11/04 Family History Medical History Relation Name Comments Healthy Father Healthy Mother Relation Name Status Comments Father Alive Mother Alive Social History Tobacco Use Types Packs/Day Years Used Date Smoking Tobacco: Never Smokeless Tobacco: Never Sex and Gender Information Value Date Recorded Sex Assigned at Not on file Legal Sex Male 4:48 AM RN OUTPATIENT SURGERY Gender Identity Not on file Sexual Orientation Not on file Last Filed Vital Signs Vital Sign Reading Time Taken Comments Blood Pressure 130/82 07/14/2018 3:53 PM CDT Pulse 87 07/14/2018 3:53 PM CDT Temperature 36.5 C (97.7 F) 07/14/2018 3:53 PM CDT Respiratory Rate 20 07/14/2018 3:53 PM CDT Oxygen Saturation 99% 07/14/2018 3:53 PM CDT Inhaled Oxygen Concentration - - Weight 51.3 kg (113 lb) 07/14/2018 3:53 PM CDT Height 160 cm (5' 3 ) 07/14/2018 3:53 PM CDT Body Mass Index 20.02 07/14/2018 3:53 PM CDT Plan of Treatment Health Maintenance Due Date Last Done Comments HPV VACCINES (1 - Male 3-dose series) 2018 DTAP/TDAP/TD VACCINES (4 - Tdap) 2022 04/09/2004, 02/08/2004, 2003 Preventative Visit-Managed Medicaid 08/21/202207/14, 2003 INFLUENZA VACCINE (#1) 2025 HEPATITIS B VACCINES Completed 02/08/2004, 2003, 2003 Insurance Care Teams Final Finisher Forging Dies Relationship Specialty Start Date End Date Shade Snow MD [address] [address] PCP - General Family Practice 06/05/16
--- OUTSIDE RECORDS SUMMARY | 2025-05-18 20:14 | XMS_ITS | Encounter Summary ---
Author Organization [facility] Address [address] [place] [address] Care Team Providers Care Pile Driver Operator Helper Name Role Phone Shade Snow MD Primary Care Provider +1 -[phone] Encounter Details Date Type Department Care Team (Latest Contact Info) Description 03/12/2004 Outpatient Historical [facility] [address] [place] [address] Celia Guzman, VOCATIONAL ED INSTRUCTOR [address] [place] [address] ACUTE URI NOS (Primary Dx) Social History Tobacco Use Types Packs/Day Years Used Date Smoking Tobacco: Never Assessed Sex and Gender Information Value Date Recorded Sex Assigned at Not on file Legal Sex Male 4:48 AM INFORMATION ENGINEER Gender Identity Not on file Sexual Orientation Not on file documented as of this encounter Plan of Treatment Not on file documented as of this encounter Visit Diagnoses Diagnosis Acute upper respiratory infections of unspecified site- Primary documented in this encounter Care Teams Pile Driver Operator Helper Relationship Specialty Start Date End Date Shade Snow MD [address] [facility] 60 [place] [phone] PCP - General Family Practice 06/05/16 documented as of this encounter
--- OUTSIDE RECORDS SUMMARY | 2025-05-18 20:14 | XMS_ITS | Encounter Summary ---
Author Organization [facility] Address [address] [place] [address] Care Team Providers Care Inside Sales Assistant Name Role Phone Shade Snow MD Primary Care Provider + -[phone] Encounter Details Date Type Department Care Team (Latest Contact Info) Description 02/08/2004 Outpatient Historical [facility] [address] [place] [address] Celia Guzman, CHENILLE MACHINE OPERATOR [address] [place] [address] VACCINE FOR DTP + POLIO (Primary Dx); VACCINE FOR H FLU TYPE B; Vaccine for viral hepatitis Social History Tobacco Use Types Packs/Day Years Used Date Smoking Tobacco: Never Assessed Sex and Gender Information Value Date Recorded Sex Assigned at Not on file Legal Sex Male 4:48 AM MEDICAL RECORD SPECIALIST Gender Identity Not on file Sexual Orientation Not on file documented as of this encounter Plan of Treatment Not on file documented as of this encounter Visit Diagnoses Diagnosis Need for prophylactic vaccination with [id number] with poliomyelitis (DTP + polio) vaccine- Primary Need for prophylactic vaccination against Hemophilus influenza type B (Hib) Vaccine for viral hepatitis Need for prophylactic vaccination and inoculation against viral hepatitis documented in this encounter Care Teams Inside Sales Assistant Relationship Specialty Start Date End Date Shade Snow MD [address] [place] [address] PCP - General Family Practice 06/05/16 documented as of this encounter
--- OUTSIDE RECORDS SUMMARY | 2025-05-18 20:14 | XMS_ITS | Encounter Summary ---
Author Organization [facility] Address [address] [facility] [address] Huffn: [place] [address] Care Team Providers Care Fish And Wildlife Technician Name Role Phone Shade Snow MD Primary Care Provider + -[phone] Encounter Details Date Type Department Care Team (Late st Contact Info) Description 2003 Inpatient Historical Devorah May [address] [facility] [address] [place] [address] SINGL BORN IN HOSP-NO C/DELIVERY (Primary Dx) Social History Tobacco Use Types Packs/Day Years Used Date Smoking Tobacco: Never Assessed Sex and Gender Information Value Date Recorded Sex Assigned at Not on file Legal Sex Male 4:48 AM CORN SHUCKER Gender Identity Not on file Sexual Orientation Not on file documented as of this encounter Plan of Treatment Not on file documented as of this encounter Visit Diagnoses Diagnosis Single liveborn, born in hospital, delivered without mention of delivery- Primary documented in this encounter Care Teams Fish And Wildlife Technician Relationship Specialty Start Date End Date Shade Snow MD [address] [place] [address] PCP - General Family Practice 06/05/16 documented as of this encounter
--- OUTSIDE RECORDS SUMMARY | 2025-05-18 20:14 | XMS_ITS | Encounter Summary ---
Author Organization [facility] Address [address] [place] [address] Care Team Providers Care Dump Worker Name Role Phone Shade Snow MD Primary Care Provider +1 -[phone] Encounter Details Date Type Department Care Team (Latest Contact Info) Description 02/29/2004 Outpatient Historical [facility] Medicine- [address] [address] Skyler Abdul, NO ADDRESS ON FILE OTITIS MEDIA NOS (Primary Dx); ACUTE URI NOS Social History Tobacco Use Types Packs/Day Years Used Date Smoking Tobacco: Never Assessed Sex and Gender Information Value Date Recorded Sex Assigned at Not on file Legal Sex Male 4:48 AM INVESTMENT BROKER Gender Identity Not on file Sexual Orientation Not on file documented as of this encounter Plan of Treatment Not on file documented as of this encounter Visit Diagnoses Diagnosis Unspecified otitis media- Primary Acute upper respiratory infections of unspecified site documented in this encounter Care Teams Dump Worker Relationship Specialty Start Date End Date Shade Snow MD [address] [phone] PCP - General Family Practice 06/05/16 documented as of this encounter
--- OUTSIDE RECORDS SUMMARY | 2025-05-18 20:14 | XMS_ITS | Encounter Summary ---
Author Organization [facility] Address [address] [place] [address] Care Team Providers Care Aviation Support Equipment Repairer Name Role Phone Shade Snow MD Primary Care Provider +1 -[phone] Encounter Details Date Type Department Care Team (Latest Contact Info) Description 01/20/2004 Outpatient Historical [facility] [address] [place] [address] Celia Guzman, UNIT AIDE [address] [place] [address] ACUTE URI NOS (Primary Dx) Social History Tobacco Use Types Packs/Day Years Used Date Smoking Tobacco: Never Assessed Sex and Gender Information Value Date Recorded Sex Assigned at Not on file Legal Sex Male 4:48 AM IMPLEMENTATION ARCHITECT Gender Identity Not on file Sexual Orientation Not on file documented as of this encounter Plan of Treatment Not on file documented as of this encounter Visit Diagnoses Diagnosis Acute upper respiratory infections of unspecified site- Primary documented in this encounter Care Teams Aviation Support Equipment Repairer Relationship Specialty Start Date End Date Shade Snow MD [address] [facility] [address] [place] [address] PCP - General Family Practice 06/05/16 documented as of this encounter
--- OUTSIDE RECORDS SUMMARY | 2025-05-18 20:14 | XMS_ITS | Encounter Summary ---
Author Organization [facility] Address [address] [place] [address] Care Team Providers Care Assistant Unit Forester Name Role Phone Shade Snow MD Primary Care Provider +1 -[phone] Encounter Details Date Type Department Care Team (Late st Contact Info) Description 04/16/2004 Outpatient Historical [facility] FY06 Tanner Ji MD [address] [place] [address] Social History Tobacco Use Types Packs/Day Years Used Date Smoking Tobacco: Never Assessed Sex and Gender Information Value Date Recorded Sex Assigned at Not on file Legal Sex Male 4:48 AM ENRICHMENT SPECIALIST Gender Identity Not on file Sexual Orientation Not on file documented as of this encounter Plan of Treatment Not on file documented as of this encounter Visit Diagnoses Not on filedocumented in this encounter Care Teams Assistant Unit Forester Relationship Specialty Start Date End Date Shade Snow MD [address] [phone] PCP - General Family Practice 06/05/16 documented as of this encounter
--- OUTSIDE RECORDS SUMMARY | 2025-05-18 20:14 | XMS_ITS | Encounter Summary ---
Author Organization [facility] Address [address] [place] [address] Care Team Providers Care Water Supply Technician Name Role Phone Shade Snow MD Primary Care Provider +1 -[phone] Encounter Details Date Type Department Care Team (Latest Contact Info) Description 07/03/2006 Outpatient Historical [facility] Family Medicine [place] [address] [address] Celia Guzman, MANAGER COSTING [address] [place] [address] Mycoplasma Infection (Primary Dx) Social History Tobacco Use Types Packs/Day Years Used Date Smoking Tobacco: Never Assessed Sex and Gender Information Value Date Recorded Sex Assigned at Not on file Legal Sex Male 4:48 AM PACK WORKER Gender Identity Not on file Sexual Orientation Not on file documented as of this encounter Plan of Treatment Not on file documented as of this encounter Visit Diagnoses Diagnosis Mycoplasma infection in conditions classified elsewhere and of unspecified site- Primary documented in this encounter Care Teams Water Supply Technician Relationship Specialty Start Date End Date Shade Snow MD [address] [address] PCP - General Family Practice 06/05/16 documented as of this encounter
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
--- OUTSIDE RECORDS SUMMARY | 2025-05-18 20:14 | XMS_ITS | Encounter Summary ---
Author Organization [facility] Address [address] [place] [address] Care Team Providers Care Director Cloud Transformation Name Role Phone Shade Snow MD Primary Care Provider +1 -[phone] Encounter Details Date Type Department Care Team (Latest Contact Info) Description 03/14/2004 Outpatient Historical [facility] [address] [place] [address] Celia Guzman, CLOTH COLORER [address] [place] [address] PNEUMONIA, ORGANISM NOS (Primary Dx) Social History Tobacco Use Types Packs/Day Years Used Date Smoking Tobacco: Never Assessed Sex and Gender Information Value Date Recorded Sex Assigned at Not on file Legal Sex Male 4:48 AM COLLABORATING SUPERVISING PHYSICIAN Gender Identity Not on file Sexual Orientation Not on file documented as of this encounter Plan of Treatment Not on file documented as of this encounter Visit Diagnoses Diagnosis Pneumonia, organism unspecified(486)- Primary Pneumonia, organism unspecified documented in this encounter Care Teams Director Cloud Transformation Relationship Specialty Start Date End Date Shade Snow MD [address] [facility] [address] [place] [address] PCP - General Family Practice 06/05/16 documented as of this encounter
--- OUTSIDE RECORDS SUMMARY | 2025-05-18 20:14 | XMS_ITS | Encounter Summary ---
Author Organization [facility] Address [address] [place] [address] Care Team Providers Care Retail Representative Name Role Phone Shade Snow MD Primary Care Provider +1 -[phone] Encounter Details Date Type Department Care Team (Latest Contact Info) Description 05/30/2004 Outpatient Historical [facility] [address] [place] [address] Celia Guzman, CAN TECHNICIAN [address] [place] [address] ACUTE URI NOS (Primary Dx) Social History Tobacco Use Types Packs/Day Years Used Date Smoking Tobacco: Never Assessed Sex and Gender Information Value Date Recorded Sex Assigned at Not on file Legal Sex Male 4:48 AM PAD ASSEMBLER Gender Identity Not on file Sexual Orientation Not on file documented as of this encounter Plan of Treatment Not on file documented as of this encounter Visit Diagnoses Diagnosis Acute upper respiratory infections of unspecified site- Primary documented in this encounter Care Teams Retail Representative Relationship Specialty Start Date End Date Shade Snow MD [address] [facility] [address] [place] [address] PCP - General Family Practice 06/05/16 documented as of this encounter
--- OUTSIDE RECORDS SUMMARY | 2025-05-18 20:14 | XMS_ITS | Encounter Summary ---
Author Organization [facility] Address [address] [place] [address] Care Team Providers Care Hospital Plan Administrator Name Role Phone Shade Snow MD Primary Care Provider +1 -[phone] Encounter Details Date Type Department Care Team (Latest Contact Info) Description 01/16/2004 Outpatient Historical [facility] [address] [place] [address] Celia Guzman, DIE PRESS OPERATOR [address] [place] [address] OTITIS MEDIA NOS (Primary Dx) Social History Tobacco Use Types Packs/Day Years Used Date Smoking Tobacco: Never Assessed Sex and Gender Information Value Date Recorded Sex Assigned at Not on file Legal Sex Male 4:48 AM LEVEL GLASS VIAL FILLER Gender Identity Not on file Sexual Orientation Not on file documented as of this encounter Plan of Treatment Not on file documented as of this encounter Visit Diagnoses Diagnosis Unspecified otitis media- Primary documented in this encounter Care Teams Hospital Plan Administrator Relationship Specialty Start Date End Date Shade Snow MD [address] [facility] [address] [place] [address] PCP - General Family Practice 06/05/16 documented as of this encounter
--- OUTSIDE RECORDS SUMMARY | 2025-05-18 20:14 | XMS_ITS | Encounter Summary ---
Author Organization [facility] Address [address] [place] [address] Care Team Providers Care Trial Court Justice Name Role Phone Shade Snow MD Primary Care Provider +1 -[phone] Encounter Details Date Type Department Care Team (Latest Contact Info) Description 05/23/2004 Outpatient Historical [facility] [address] [place] [address] Celia Guzman, FACULTY RESEARCH PHYSICIAN [address] [place] [address] ACUTE URI NOS (Primary Dx); WHEEZING Social History Tobacco Use Types Packs/Day Years Used Date Smoking Tobacco: Never Assessed Sex and Gender Information Value Date Recorded Sex Assigned at Not on file Legal Sex Male 4:48 AM TRUCK DOCK MATERIAL MOVER Gender Identity Not on file Sexual Orientation Not on file documented as of this encounter Plan of Treatment Not on file documented as of this encounter Visit Diagnoses Diagnosis Acute upper respiratory infections of unspecified site- Primary Wheezing documented in this encounter Care Teams Trial Court Justice Relationship Specialty Start Date End Date Shade Snow MD [address] [facility] [address] [place] [address] PCP - General Family Practice 06/05/16 documented as of this encounter
--- OUTSIDE RECORDS SUMMARY | 2025-05-18 20:14 | XMS_ITS | Encounter Summary ---
Author Organization [facility] Address [address] [place] [address] Care Team Providers Care Call Center Director Name Role Phone Shade Snow MD Primary Care Provider +1 -[phone] Encounter Details Date Type Department Care Team (Latest Contact Info) Description 2003 Outpatient Historical [facility] Medicine[address] [phone] Kike Ramirez MD [address] [phone] Routine child health exam (Primary Dx) Social History Tobacco Use Types Packs/Day Years Used Date Smoking Tobacco: Never Assessed Sex and Gender Information Value Date Recorded Sex Assigned at Not on file Legal Sex Male 4:48 AM FURNITURE UPHOLSTERY MECHANIC Gender Identity Not on file Sexual Orientation Not on file documented as of this encounter Plan of Treatment Not on file documented as of this encounter Visit Diagnoses Diagnosis Routine child health exam- Primary Routine infant or child health check documented in this encounter Care Teams Call Center Director Relationship Specialty Start Date End Date Shade Snow MD [address] [phone] PCP - General Family Practice 06/05/16 documented as of this encounter
--- OUTSIDE RECORDS SUMMARY | 2025-05-18 20:14 | XMS_ITS | Encounter Summary ---
Author Organization [facility] Address [address] [place] [address] Care Team Providers Care Filling Layer Up Name Role Phone Shade Snow MD Primary Care Provider +1 -[phone] Encounter Details Date Type Department Care Team (Latest Contact Info) Description 03/16/2004 Outpatient Historical [facility] [address] [place] [address] Celia Guzman, DYNAMO REPAIRER [address] [place] [address] PNEUMONIA, ORGANISM NOS (Primary Dx) Social History Tobacco Use Types Packs/Day Years Used Date Smoking Tobacco: Never Assessed Sex and Gender Information Value Date Recorded Sex Assigned at Not on file Legal Sex Male 4:48 AM WALL COVERING INSTALLER Gender Identity Not on file Sexual Orientation Not on file documented as of this encounter Plan of Treatment Not on file documented as of this encounter Visit Diagnoses Diagnosis Pneumonia, organism unspecified(486)- Primary Pneumonia, organism unspecified documented in this encounter Care Teams Filling Layer Up Relationship Specialty Start Date End Date Shade Snow MD [address] [facility] [address] [place] [address] PCP - General Family Practice 06/05/16 documented as of this encounter
--- OUTSIDE RECORDS SUMMARY | 2025-05-18 20:14 | XMS_ITS | Encounter Summary ---
Author Organization [facility] Address [address] [place] [address] Care Team Providers Care Inspector Timers Name Role Phone Shade Snow MD Primary Care Provider +1 -[phone] Encounter Details Date Type Department Care Team (Late st Contact Info) Description 10/05/2006 Outpatient Historical [facility] Wound Care [address] [place] [address] Javier Yen MD [address] [address] Social History Tobacco Use Types Packs/Day Years Used Date Smoking Tobacco: Never Assessed Sex and Gender Information Value Date Recorded Sex Assigned at Not on file Legal Sex Male 4:48 AM JAVA ENGINEER Gender Identity Not on file Sexual Orientation Not on file documented as of this encounter Plan of Treatment Not on file documented as of this encounter Visit Diagnoses Not on filedocumented in this encounter Care Teams Inspector Timers Relationship Specialty Start Date End Date Shade Snow MD [address] [facility] [address] [place] [address] PCP - General Family Practice 06/05/16 documented as of this encounter
--- OUTSIDE RECORDS SUMMARY | 2025-05-18 20:14 | XMS_ITS | Clinical Summary ---
Author Organization [facility] Address [address] [place]: Epic Prelude ADT [place] [address] Care Team Providers Care Editor Managing Director Name Role Phone Shade Snow MD Primary Care Provider +1 -[phone] Allergies Active Allergy Reactions Criticality Noted Date Comments Morphine Other (See Comments) 07/24/2009 Medications buspirone HCl (BUSPAR ORAL) Take 10 mg by mouth daily. Active escitalopram oxalate (LEXAPRO) 20 mg tablet Take 20 mg by mouth daily. Active SUMAtriptan (Imitrex) 50 mg tablet Take 1 Tablet (50 mg) by mouth every 2 hours as needed for Headaches. may repeat in 2 hours; max dose 200mg in 24 hours 10 Tablet 1 02/14/2025 Active Active Problems Problem Noted Date Diagnosed Date Headache(784.0) 11/07/2010 Encounters Date Type Department Care Team Description 02/20/2025 4:35 PM CDT - 02/20/2025 6:10 PM CDT Emergency [facility] Emergency Medicine [address] [place] [address] Tano Best DO Impacted cerumen of right ear (Primary Dx) Discharge Disposition: Home or Self Care 02/20/2025 Travel from Last 3 Months Immunizations Immunization Administration Dates Next Due (INFANRIX)(6 WKS-6 YRS) DIPT HERIA, TETANUS TOXOIDS, AND ACCELLULAR PERTUSSIS VACCINE (DTAP), 0.5 ML IM 04/09/2004,02/08/2004,2003 (IPOL)(6 WKS AND UP) POLIOVI TORRI VACCINE, INACTIVATED (IPV), 3 DOSE, SUBCUT OR IM 2003 (M-M-R II/PRIORIX)(12 MO UP) MEASLES, MUMPS AND RUBELLA VIRUS VACCINE, 0.5 ML IM/SUBCUT 01/10/2009,01/10/2009 (VARIVAX)(12 MOS UP)VARICELL A VIRUS VACCINE (PF) 0.5 ML, SUB CUT 01/10/2009,01/10/2009 Dt Dtp Dtap Vaccine 04/09/2004,02/08/2004,2003 HIB, Unspecified Formulation 04/09/2004, 04/09/2004,02/08/2004,2003,2003,2003 Hepatitis B Vaccine 02/08/2004, 4,2003,2003,2003,2003 IPV/OPV 2003 Pneumococcal 7-valent conjug ate vaccine IM 2003,2003 Family History Medical History Relation Name Comments Healthy Father Healthy Mother Relation Name Status Comments Father Alive Mother Alive Social History Tobacco Use Types Packs/Day Years Used Date Smoking Tobacco: Never Smokeless Tobacco: Current Tobacco Cessation:Ready to Q uit: Not Asked; Counseling Given: Not Answered Alcohol Use Standard Drinks/Week Comments Not Currently 0 (1 standard drink = 0.6 oz pur e alcohol) Adolescent Education Answer Date Record ed Getting School Help Needed Not on file 04/07 Feeling Safe Answer Date Recorded Are you in a relationship wi th someone who hurts you emotionally and/or physically? 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 DROPPER Gender Identity Not on file Sexual Orientation Not on file Last Filed Vital Signs Vital Sign Reading Time Taken Comments Blood Pressure 111/97 02/20/2025 6:00 PM CDT Pulse 73 02/20/2025 6:00 PM CDT Temperature 36.6 C (97.8 F) 02/20/2025 4:35 PM CDT Respiratory Rate 17 02/20/2025 6:00 PM CDT Oxygen Saturation 97% 02/20/2025 6:00 PM CDT Inhaled Oxygen Concentration - - Weight 73.8 kg (162 lb 11.2 oz) 02/20/2025 4:35 PM CDT Height 167.6 cm (5' 6 ) 02/20/2025 4:35 PM CDT Body Mass Index 26.26 02/20/2025 4:35 PM CDT Plan of Treatment Health Maintenance Due Date Last Done Comments HPV VACCINES (1 - Male 3-dos e series) 2018 DTAP/TDAP/TD VACCINES (4 - Tdap) 2022 04/09/2004, 04/09/2004, 02/08/2004, Additional history exists Preventative Visit-Managed Medicaid 2022 INFLUENZA VACCINE (#1) 2025 11/07/2021 HEPATITIS B VACCINES Completed 02/08/2004, 02/08/2004, 2003, Additional history exists Insurance [facility] [employer] MED[employer] Care Teams Editor Managing Director Relationship Specialty Start Date End Date Shade Snow MD [address] [address] PCP - General Family Practice 06/05/16
--- OUTSIDE RECORDS SUMMARY | 2025-05-18 20:14 | XMS_ITS | Encounter Summary ---
Author Organization [facility] Address [address] [place]: Epic Prelude ADT [place] [address] Care Team Providers Care Credit Administration Officer Name Role Phone Shade Snow MD Primary Care Provider +1 -[phone] Encounter Details Date Type Department Care Team (Late st Contact Info) Description 2003 Inpatient Historical Harley Delgadillo MD [address] [place] [phone] ANH PYLORIC STENOSIS (CMS/HCC) (Primary Dx) Social History Tobacco Use Types Packs/Day Years Used Date Smoking Tobacco: Never Assessed Sex and Gender Information Value Date Recorded Sex Assigned at Not on file Legal Sex Male 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
--- OUTSIDE RECORDS SUMMARY | 2025-05-18 20:14 | XMS_ITS | Encounter Summary ---
Author Organization [facility] Address [address] [place] [address] Care Team Providers Care Power Plant Mechanic Name Role Phone Shade Snow MD Primary Care Provider +1 -[phone] Encounter Details Date Type Department Care Team (Late st Contact Info) Description 09/04/2006 Outpatient Historical [facility] Wound Care [address] [place] [address] Javier Yen MD [address] [address] Social History Tobacco Use Types Packs/Day Years Used Date Smoking Tobacco: Never Assessed Sex and Gender Information Value Date Recorded Sex Assigned at Not on file Legal Sex Male 4:48 AM CIRCUIT RECORDER Gender Identity Not on file Sexual Orientation Not on file documented as of this encounter Plan of Treatment Not on file documented as of this encounter Visit Diagnoses Not on filedocumented in this encounter Care Teams Power Plant Mechanic Relationship Specialty Start Date End Date Shade Snow MD [address] [facility] 60 [place] [address] PCP - General Family Practice 06/05/16 documented as of this encounter
--- OUTSIDE RECORDS SUMMARY | 2025-05-18 20:14 | XMS_ITS | Encounter Summary ---
Author Organization [facility] Address [address] [place] [address] Care Team Providers Care Operating Room Manager Name Role Phone Shade Snow MD Primary Care Provider +1 -[phone] Encounter Details Date Type Department Care Team (Latest Contact Info) Description 05/30/2004 Outpatient Historical [facility] [address] [place] [address] Celia Guzman, CLAMP FORKLIFT OPERATOR [address] [place] [address] ABN BLOOD CHEMISTRY NEC (Primary Dx) Social History Tobacco Use Types Packs/Day Years Used Date Smoking Tobacco: Never Assessed Sex and Gender Information Value Date Recorded Sex Assigned at Not on file Legal Sex Male 4:48 AM ACCOUNT ENGINEER Gender Identity Not on file Sexual Orientation Not on file documented as of this encounter Plan of Treatment Not on file documented as of this encounter Visit Diagnoses Diagnosis Other abnormal blood chemistry- Primary documented in this encounter Care Teams Operating Room Manager Relationship Specialty Start Date End Date Shade Snow MD [address] [facility] [address] [place] [address] PCP - General Family Practice 06/05/16 documented as of this encounter
--- OUTSIDE RECORDS SUMMARY | 2025-05-18 20:14 | XMS_ITS | Encounter Summary ---
Author Organization [facility] Address [address] [place] [address] Care Team Providers Care Line Maintenance Name Role Phone Shade Snow MD Primary Care Provider +1 -[phone] Encounter Details Date Type Department Care Team (Latest Contact Info) Description 2003 Outpatient Historical [facility] Imaging Services [address] [place] [address] Frida Francois MD [address] [place] [phone] ACQ PYLORIC STENOSIS (Primary Dx) Social History Tobacco Use Types Packs/Day Years Used Date Smoking Tobacco: Never Assessed Sex and Gender Information Value Date Recorded Sex Assigned at Not on file Legal Sex Male 4:48 AM VISITOR SERVICES INFORMATION ASSISTANT Gender Identity Not on file Sexual Orientation Not on file documented as of this encounter Plan of Treatment Not on file documented as of this encounter Visit Diagnoses Diagnosis Acquired hypertrophic pyloric stenosis- Primary documented in this encounter Care Teams Line Maintenance Relationship Specialty Start Date End Date Shade Snow MD [address] [facility] [address] [place] [address] PCP - General Family Practice 06/05/16 documented as of this encounter
--- OUTSIDE RECORDS SUMMARY | 2025-05-18 20:14 | XMS_ITS | Encounter Summary ---
Author Organization [facility] Address [address] [place] [address] Care Team Providers Care Certified Nursing Attendant Name Role Phone Shade Snow MD Primary Care Provider +1 -[phone] Encounter Details Date Type Department Care Team (Latest Contact Info) Description 2003 Outpatient Historical [facility] [address] [phone] Adry Stauffer MD [address] [place] [address] ACUTE BRONCHIOLITIS/OTHR INFECT ORG (Primary Dx) Social History Tobacco Use Types Packs/Day Years Used Date Smoking Tobacco: Never Assessed Sex and Gender Information Value Date Recorded Sex Assigned at Not on file Legal Sex Male 4:48 AM ENVIRONMENTAL ENGINEERING MANAGER Gender Identity Not on file Sexual Orientation Not on file documented as of this encounter Plan of Treatment Not on file documented as of this encounter Visit Diagnoses Diagnosis Acute bronchiolitis due to other infectious organisms- Primary documented in this encounter Care Teams Certified Nursing Attendant Relationship Specialty Start Date End Date Shade Snow MD [address] [address] PCP - General Family Practice 06/05/16 documented as of this encounter
--- OUTSIDE RECORDS SUMMARY | 2025-05-18 20:14 | XMS_ITS | Encounter Summary ---
Author Organization [facility] Address [address] [place] [address] Care Team Providers Care Cloth Shearing Supervisor Name Role Phone Shade Snow MD Primary Care Provider +1 -[phone] Encounter Details Date Type Department Care Team (Latest Contact Info) Description 05/14/2004 Outpatient Historical [facility] [address] [place] [address] Celia Guzman, ELECTRONIC GLUING MACHINE OPERATOR [address] [place] [address] ALLERGY, UNSPECIFIED (Primary Dx) Social History Tobacco Use Types Packs/Day Years Used Date Smoking Tobacco: Never Assessed Sex and Gender Information Value Date Recorded Sex Assigned at Not on file Legal Sex Male 4:48 AM GLYCERIN SUPERVISOR Gender Identity Not on file Sexual Orientation Not on file documented as of this encounter Plan of Treatment Not on file documented as of this encounter Visit Diagnoses Diagnosis Allergy, unspecified not elsewhere classified- Primary documented in this encounter Care Teams Cloth Shearing Supervisor Relationship Specialty Start Date End Date Shade Snow MD [address] [facility] [address] [place] [address] PCP - General Family Practice 06/05/16 documented as of this encounter
--- OUTSIDE RECORDS SUMMARY | 2025-05-18 20:14 | XMS_ITS | Encounter Summary ---
Author Organization [facility] Address [address] [place] [address] Care Team Providers Care Seismograph Recorder Name Role Phone Shade Snow MD Primary Care Provider +1 -[phone] Encounter Details Date Type Department Care Team (Latest Contact Info) Description 01/30/2004 Outpatient Historical [facility] [address] [place] [address] Celia Guzman, HEEL COVERER MACHINE OPERATOR [address] [place] [address] FEVER (Primary Dx) Social History Tobacco Use Types Packs/Day Years Used Date Smoking Tobacco: Never Assessed Sex and Gender Information Value Date Recorded Sex Assigned at Not on file Legal Sex Male 4:48 AM ASSOCIATE SOFTWARE APPLICATION ENGINEER Gender Identity Not on file Sexual Orientation Not on file documented as of this encounter Plan of Treatment Not on file documented as of this encounter Visit Diagnoses Diagnosis Fever and other physiologic disturbances of temperature regulation- Primary documented in this encounter Care Teams Seismograph Recorder Relationship Specialty Start Date End Date Shade Snow MD [address] [facility] [address] [place] [address] PCP - General Family Practice 06/05/16 documented as of this encounter
--- OUTSIDE RECORDS SUMMARY | 2025-05-18 20:14 | XMS_ITS | Encounter Summary ---
Author Organization [facility] Address [address] [place] [address] Care Team Providers Care Juice Bar Team Member Name Role Phone Shade Snow MD Primary Care Provider +1 -[phone] Encounter Details Date Type Department Care Team (Latest Contact Info) Description 05/25/2004 Outpatient Historical [facility] [address] [place] [address] Celia Guzman, WATCH CRYSTAL MOLDER [address] [place] [address] MYCOPLASMA/EATON'S/P PLO INFECTION (Primary Dx) Social History Tobacco Use Types Packs/Day Years Used Date Smoking Tobacco: Never Assessed Sex and Gender Information Value Date Recorded Sex Assigned at Not on file Legal Sex Male 4:48 AM SHOE IRONER Gender Identity Not on file Sexual Orientation Not on file documented as of this encounter Plan of Treatment Not on file documented as of this encounter Visit Diagnoses Diagnosis 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
--- OUTSIDE RECORDS SUMMARY | 2025-05-18 20:14 | XMS_ITS | Encounter Summary ---
Author Organization [facility] Address [address] [place] [address] Care Team Providers Care Casing Man Name Role Phone Shade Snow MD Primary Care Provider +1 -[phone] Encounter Details Date Type Department Care Team (Latest Contact Info) Description 02/03/2004 Outpatient Historical [facility] [address] [place] [address] Celia Guzman, CEMENT CONTRACTOR [address] [place] [address] ABNL BLOOD EXAM FINDING OTHER SPEC (Primary Dx) Social History Tobacco Use Types Packs/Day Years Used Date Smoking Tobacco: Never Assessed Sex and Gender Information Value Date Recorded Sex Assigned at Not on file Legal Sex Male 4:48 AM TERMINAL BLOCK ASSEMBLER Gender Identity Not on file Sexual Orientation Not on file documented as of this encounter Plan of Treatment Not on file documented as of this encounter Visit Diagnoses Diagnosis Other nonspecific findings on examination of blood(790.99)- Primary Other nonspecific findings on examination of blood documented in this encounter Care Teams Casing Man Relationship Specialty Start Date End Date Shade Snow MD [address] [facility] [address] [place] [address] PCP - General Family Practice 06/05/16 documented as of this encounter
--- OUTSIDE RECORDS SUMMARY | 2025-05-18 20:14 | XMS_ITS | Encounter Summary ---
Author Organization [facility] Address [address] [place] [address] Care Team Providers Care Fraud Representative Name Role Phone Shade Snow MD Primary Care Provider +1 -[phone] Encounter Details Date Type Department Care Team (Latest Contact Info) Description 2003 Outpatient Historical [facility] [address] [phone] Adry Stauffer MD [address] [place] [address] Routine child health exam (Primary Dx) Social History Tobacco Use Types Packs/Day Years Used Date Smoking Tobacco: Never Assessed Sex and Gender Information Value Date Recorded Sex Assigned at Not on file Legal Sex Male 4:48 AM PERSONAL DEVELOPMENT EDUCATOR Gender Identity Not on file Sexual Orientation Not on file documented as of this encounter Plan of Treatment Not on file documented as of this encounter Visit Diagnoses Diagnosis Routine child health exam- Primary Routine or child health check documented in this encounter Care Teams Fraud Representative Relationship Specialty Start Date End Date Shade Snow MD [address] [phone] PCP - General Family Practice 06/05/16 documented as of this encounter
--- OUTSIDE RECORDS SUMMARY | 2025-05-18 20:14 | XMS_ITS | Encounter Summary ---
Author Organization [facility] Address [address] [place] [address] Care Team Providers Care Graduate Assistant Name Role Phone Shade Snow MD Primary Care Provider +1 -[phone] Encounter Details Date Type Department Care Team (Latest Contact Info) Description 2003 Outpatient Historical [facility] [address] [address] Johnny Liu MD [address] [place] [phone] LOSS OF WEIGHT (Primary Dx) Social History Tobacco Use Types Packs/Day Years Used Date Smoking Tobacco: Never Assessed Sex and Gender Information Value Date Recorded Sex Assigned at Not on file Legal Sex Male 4:48 AM FOUNDRY WORKER APPRENTICE Gender Identity Not on file Sexual Orientation Not on file documented as of this encounter Plan of Treatment Not on file documented as of this encounter Visit Diagnoses Diagnosis Loss of weight- Primary documented in this encounter Care Teams Graduate Assistant Relationship Specialty Start Date End Date Shade Snow MD [address] [facility] [address] [place] [address] PCP - General Family Practice 06/05/16 documented as of this encounter
--- OUTSIDE RECORDS SUMMARY | 2025-05-18 20:14 | XMS_ITS | Encounter Summary ---
Author Organization [facility] Address [address] [place] [address] Care Team Providers Care Coal Deliverer Name Role Phone Shade Snow MD Primary Care Provider +1 -[phone] Encounter Details Date Type Department Care Team (Latest Contact Info) Description 2003 Outpatient Historical [facility] [address] [place] [address] Celia Guzman, IN FILE OPERATOR [address] [place] [address] OTITIS MEDIA NOS (Primary Dx); ACUTE PHARYNGITIS Social History Tobacco Use Types Packs/Day Years Used Date Smoking Tobacco: Never Assessed Sex and Gender Information Value Date Recorded Sex Assigned at Not on file Legal Sex Male 4:48 AM ASSEMBLING MACHINE OPERATOR Gender Identity Not on file Sexual Orientation Not on file documented as of this encounter Plan of Treatment Not on file documented as of this encounter Visit Diagnoses Diagnosis Unspecified otitis media- Primary Acute pharyngitis documented in this encounter Care Teams Coal Deliverer Relationship Specialty Start Date End Date Shade Snow MD [address] [facility] [address] [place] [address] PCP - General Family Practice 06/05/16 documented as of this encounter
--- OUTSIDE RECORDS SUMMARY | 2025-05-18 20:14 | XMS_ITS | Encounter Summary ---
Author Organization [facility] Address [address] [place] [address] Care Team Providers Care Family Protection Specialist Name Role Phone Shade Snow MD Primary Care Provider +1 -[phone] Encounter Details Date Type Department Care Team (Latest Contact Info) Description 04/09/2004 Outpatient Historical [facility] [address] [place] [address] Celia Guzman, DINING ROOM MANAGER [address] [place] [address] VACCINE FOR DTP + POLIO (Primary Dx); VACCINE FOR H FLU TYPE B Social History Tobacco Use Types Packs/Day Years Used Date Smoking Tobacco: Never Assessed Sex and Gender Information Value Date Recorded Sex Assigned at Not on file Legal Sex Male 4:48 AM COUNSELING PSYCHOLOGIST Gender Identity Not on file Sexual Orientation Not on file documented as of this encounter Plan of Treatment Not on file documented as of this encounter Visit Diagnoses Diagnosis Need for prophylactic vaccination with [id number] with poliomyelitis (DTP + polio) vaccine- Primary Need for prophylactic vaccination against Hemophilus influenza type B (Hib) documented in this encounter Care Teams Family Protection Specialist Relationship Specialty Start Date End Date Shade Snow MD [address] [facility] 60 [place] [address] PCP - General Family Practice 06/05/16 documented as of this encounter
--- OUTSIDE RECORDS SUMMARY | 2025-05-18 20:14 | XMS_ITS | Encounter Summary ---
Author Organization [facility] Address [address] [place] [address] Care Team Providers Care Painter Spray Name Role Phone Shade Snow MD Primary Care Provider [phone] Encounter Details Date Type Department Care Team (Latest Contact Info) Description 03/28/2004 Outpatient Historical [facility] [address] [place] [address] Celia Guzman, HOT BOX CHECKER [address] [place] [address] TEETHING SYNDROME (Primary Dx) Social History Tobacco Use Types Packs/Day Years Used Date Smoking Tobacco: Never Assessed Sex and Gender Information Value Date Recorded Sex Assigned at Not on file Legal Sex Male 4:48 AM BOND TRADER Gender Identity Not on file Sexual Orientation Not on file documented as of this encounter Plan of Treatment Not on file documented as of this encounter Visit Diagnoses Diagnosis Teething syndrome- Primary documented in this encounter Care Teams Painter Spray Relationship Specialty Start Date End Date Shade Snow MD [address] [facility] [address] [place] [id number] PCP - General Family Practice 06/05/16 documented as of this encounter
--- OUTSIDE RECORDS SUMMARY | 2025-05-18 20:14 | XMS_ITS | Encounter Summary ---
Author Organization [facility] Address [address] [place] [address] Care Team Providers Care Web Development Manager Name Role Phone Shade Snow MD Primary Care Provider [phone] Encounter Details Date Type Department Care Team (Latest Contact Info) Description 2003 Outpatient Historical [facility] [id number] Adry Stauffer MD [address] [place] [address] ACUTE BRONCHIOLITIS/OTHR INFECT ORG (Primary Dx) Social History Tobacco Use Types Packs/Day Years Used Date Smoking Tobacco: Never Assessed Sex and Gender Information Value Date Recorded Sex Assigned at Not on file Legal Sex Male 4:48 AM ENGINE LATHE SET UP OPERATOR TOOL Gender Identity Not on file Sexual Orientation Not on file documented as of this encounter Plan of Treatment Not on file documented as of this encounter Visit Diagnoses Diagnosis Acute bronchiolitis due to other infectious organisms- Primary documented in this encounter Care Teams Web Development Manager Relationship Specialty Start Date End Date Shade Snow MD [address] [id number] PCP - General Family Practice 06/05/16 documented as of this encounter
[2025-05-18 20:24] LABS: Alanine Aminotransferase 37 U/L (0-41); Albumin Level 4.7 g/dL (3.5-5.2); Alkaline Phosphatase 95 U/L (40-130); Anion Gap 17.1 (5-19); Aspartate Amino Transferase 24 U/L (0-40); Blood Urea Nitrogen 10 mg/dL (6-20); Calcium 9.9 mg/dL (8.5-10.5); Carbon Dioxide 25 mmol/L (22-29); Chloride 102 mmol/L (98-107); Creatinine Clr Calc Pharmacy 122.7412; Globulin 3.6 g/dL (1.3-4.6); Glucose 106 mg/dL (65-115); Osmolality Calculated 289 mOsm/kg (285-295); Potassium 4.1 mmol/L (3.5-5.1); Sodium 140 mmol/L (136-145); Total Protein 8.3 g/dL (6.6-8.7)
[2025-05-18 20:30] LABS: Acetaminophen < 5.0 ug/mL (10-30); Alcohol Level < 10 mg/dL (0-10); Salicylate < 0.3 mg/dL (3-10)
--- NOTE | 2025-05-18 20:50 | PC.NURSE ---
96 Hour Involuntary Hold Patient Rights have been reviewed with patient and a copy of the same has been provided to him. Nursing Agency Manager Anthony Nunn was present at bedside during presentation of Rights.
[2025-05-18 21:14] LABS: PCP Screen Urine Negative (Negative)
--- NOTE | 2025-05-18 22:46 | PC.NURSE ---
Report called to Cj. All questions and concerns addressed at time of report.
[2025-05-18 23:00] VITALS: BP 129/83; PULSE 75; RESP 18; TEMP 36.4; O2SAT 96
[2025-05-19 06:00] VITALS: BP 112/63; PULSE 58; RESP 16; TEMP 36.7; O2SAT 97
[2025-05-19 14:00] VITALS: BP 110/74; PULSE 88; RESP 16; TEMP 37; O2SAT 99
--- NOTE | 2025-05-19 17:06 | W.PM.NPUH&PS ---
Providers/Chief Complaint Admitting Physician: Jose Walter MD Primary Care Provider: TANYA Peña Chief Complaint: MHE HPI NPU History of Present Illness Rickie Nunn is a 19 year old male with no prior history of inpatient psychiatric hospitalization. The patient was brought in to the emergency department after he had been found to have written several suicide notes to his grandmother, mother, and his . The patient was admitted involuntarily to the neuropsychiatric unit for further evaluation and treatment. The patient reports that he has a history of problems with controlling his worry. The patient had reported on the day of admission that he had woken up and had a argument with his now common-law over the phone. He had the day off and was going to work on the house that he was building for them to live in when he had been overwhelmed by his thoughts and worries. He reported that on that day he became extremely worried and stated that he did not know how to manage his anxiety. He reports that he walked over to the [facility] nearby and prior to walking over there he proceeded to write a suicide note to his grandmother mother and . He states that he did not have a weapon or anything to harm himself but that he left it at home. He states that he was in the [facility] for a few hours and ultimately came back home at which time his family member had discovered the note and they promptly insisted that he be evaluated in the emergency department. He reports that he has been struggling with an increase in anxiety as he states that around May 2024, he is then common-law had moved out briefly and it prompted the patient to get help to manage his anxiety. He reports that he had been initially receiving treatment with Lexapro and hydroxyzine to manage anxiety and depression but states recently over the past 3 weeks that he was placed on Zoloft with BuSpar. He denies any depressed mood today and reports that generally speaking he is not depressed. He reported 1 previous suicide attempt as he had allegedly tried to hang himself 1 time when he was a teenager. He had reported no previous history of self injury. He generally reports having no change in appetite or energy. He reports good motivation and denied anhedonia. He reports no feelings of hopelessness or worthlessness. He had reported that he had not contemplated suicide until that day yesterday and stated that when he becomes very anxious he feels that he is unable to manage his anxiety and at that moment he thought of her hurting himself. He denies any psychotic symptoms. He denied any history of shine. He does report that his worry often spirals out of control and reports that he sometimes struggles with managing his worries to the extent that he gets tension and becomes more irritable when he worries. He reports that his worry often impedes his ability to concentrate on things currently at hand. He denies any drug or alcohol use. He denied any social anxiety disorder. He denied any symptoms suggestive obsessive-compulsive disorder. The patient does report having significant family stress and states no history of auditory or visual hallucinations. Inpatient psychiatric history: None Outpatient psychiatric history: None reported other than the patient receiving virtual counseling over the past year on an as needed basis. He reports that his previous trials for treating anxiety are managed by his primary care physician with previous trials including Lexapro and hydroxyzine. Medical history: Migraine headaches Surgical history: Pyloric stenosis surgery as child Allergies: morphine Medications: Zoloft 50 mg daily, sumatriptan as needed for migraines, BuSpar 10 mg 3 times a day Substance abuse history: None reported Legal history: None history: None Social history: There is no history of developmental delays or learning problems noted. He was raised by his biological parents until the age of 13 at which time he reports that his mother had abandoned the family and he reports that he moved in with his maternal grandparents. He is the oldest of 6 full siblings and one half sibling. He had denied any history of sexual physical or emotional abuse. He has a 6-month old child from his common-law who he is known for less than a year. He currently lives in [facility]. 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 He currently lives on a large property owned by his maternal grandparents in their home while currently building a house so that his and children can live there with them. His and 6-month-old are currently living with her parents near [place]. He had reported that he was close with his maternal grandfather who in 2021. Meds NPU Home Medications ?Medication ?Instructions ?Recorded ?Confirmed ?Last Taken ?Type buspirone 10 mg tablet 10 mg PO TID PRN Anxiety 05/18/25 05/18/25 Unknown History sertraline 50 mg tablet (Zoloft) 50 mg PO DAILY 05/18/25 05/18/25 Unknown History Allergies Allergy/AdvReac Type Severity Reaction Status Date / Time morphine Allergy ALGY-Anaphy Verified 05/18/25 19:55 laxis Mental Status Exam MSE Comments: 19-year-old male who was pleasant and cooperative on interview who appeared in mild to moderate distress. His gait appeared within normal limits. His hygiene was fair. There was no evidence of any abnormal involuntary motor movements, tics, or tremors appreciated. His speech was normal in regards to rate, rhythm, and prosody. His mood was described as okay. His affect was anxious with moments where he had appeared to be on the verge of crying. His thought process was linear, logical, and goal-directed. His thought content revealed no evidence of suicidal or homicidal ideation. He had acknowledged that he had felt suicidal prior to writing the suicide notes. There was no evidence of delusional thinking. He did not appear to be responding to internal stimuli. He was alert and oriented person, place, time, and situation. His recent remote memory appeared grossly intact. His insight was limited. His judgment was poor. His impulse control appeared fair. Vitals/I&O/Wt Last Vital Signs Temp 98.6 F 05/19/25 14:00 Pulse 88 05/19/25 14:00 Resp 16 05/19/25 14:00 BP 110/74 05/19/25 14:00 Pulse Ox 99 05/19/25 14:00 O2 Del Method Room Air 05/19/25 14:00 Weight last 48 hrs Weight 74.843 kg Data NPU 05/18/25 19:59 05/18/25 19:59 A&P Assessment and plan 1. HUI (generalized anxiety disorder): 2. Suicidal ideation: 3. Depression: Plan: 19-year-old male admitted after writing several suicide notes and endorsing suicidal ideation shortly after having an acute attack of anxiety currently denying any depression. #1.? Engage patient in individual milieu and group therapy. #2?? Recommend sober living treatment at the highest level of care to which the patient is willing to commit #3??? Restart Buspar and zoloft with increase in zoloft to 75mg to target anxiety and depression. Patient would likely benefit from CBT on outpatient basis. ? #4?? TO-15 minute checks? #5?? Will attempt to gather collateral information PDMP PDMP Reviewed: Not Reviewed Involuntary Hold Information Hold Status: Legal Status: 96 Hour Hold Date/Time Hold Expires: 05/24/25 @ 20:21 Attestations NPU Medical Necessity Statement*: Inpatient hospitalization is medically necessary and deemed to ?be ?the clinically appropriate intervention ?at this time.? We will monitor/initiate medications and make changes as indicated.? The patient will be hospitalized for at least two midnights. The patient?s likely length of stay 7-10 days. Coding Level of Care Code Acute Code for Chg Fwd Diagnoses HUI (generalized anxiety disorder) F41.1 Suicidal ideation R45.851 Depression F32.A
[2025-05-19 20:12] VITALS: BP 134/80; PULSE 78; RESP 19; TEMP 37.1; O2SAT 95
[2025-05-20 06:00] VITALS: BP 106/62; PULSE 90; RESP 17; TEMP 36.5; O2SAT 97
--- NOTE | 2025-05-20 10:39 | NUR.SHIFT ---
Pt states that he slept good last night. Denies anxiety and depression. No reports of SI/HI or hallucinations. No pain. He has been resting in bed with eyes closed every time that I have seen him. He has to woken up to talk. He is calm and cooperative on assesment.
[2025-05-20 14:00] VITALS: BP 124/76; PULSE 62; RESP 18; TEMP 36.8; O2SAT 96
--- NOTE | 2025-05-20 14:58 | P.NPUPN_ITS ---
Subjective NPU 2 Subjective: Patient presented today reporting that things are going. He is not excited about still being in the hospital but we had a discussion about right suicide notes it is difficult to then explain away not being suicidal. We discussed the fact that we have no idea what is going on inside his body and so we just need to be diligent and speak every day and make sure that we have several days of identifying his ability to contract for safety and is having a plan for a safe discharge that would likely happen next week. He denied any side effects of the medication. Mental Status Exam 2 MSE Comments: 19-year-old male who was pleasant and co operative on interview who appeared in mild to moderate distress. His gait appeared within normal limits. His hygiene was fair. There was no evidence of any abnormal involuntary motor movements, tics, or tremors appreciated. His speech was normal in regards to rate, rhythm, and prosody. His mood was described as okay. His affect was anxious with moments where he had appeared to be on the verge of crying. His thought process was linear, logical, and goal-directed. His thought content revealed no evidence of suicidal or homicidal ideation. He had acknowledged that he had felt suicidal prior to writing the suicide notes. There was no evidence of delusional thinking. He did not appear to be responding to internal stimuli. He was alert and oriented person, place, time, and situation. His recent remote memory appeared grossly intact. His insight was limited. His judgment was poor. His impulse control appeared fair. Vitals/I&O/Wt Last Vital Signs Temp 97.7 F 05/20/25 06:00 Pulse 90 05/20/25 06:00 Resp 17 05/20/25 06:00 BP 106/62 05/20/25 06:00 Pulse Ox 97 05/20/25 06:00 O2 Del Method Room Air 05/20/25 06:00 Weight last 48 hrs Weight 74.843 kg Data NPU 05/18/25 19:59 05/18/25 19:59 A&P Assessment and plan 1. HUI (generalized anxiety disorder): 2. Suicidal ideation: 3. Depression: Plan: 19-year-old male admitted after writing several suicide notes and endorsing suicidal ideation shortly after having an acute attack of anxiety currently denying any depression. #1.? Engage patient in individual milieu and group therapy. #2?? Recommend sober living treatment at the highest level of care to which the patient is willing to commit #3??? Restart Buspar and zoloft with increase in zoloft to 75mg to target anxiety and depression. Patient would likely benefit from CBT on outpatient basis. ? #4?? TO-15 minute checks? #5?? Will attempt to gather collateral information PDMP PDMP Reviewed: Not Reviewed Involuntary Hold Information 2 Hold Status: Legal Status: 96 Hour Hold Date/Time Hold Expires: 05/24/25 @ 20:21 Attestations NPU 2 Medical Necessity Statement*: Inpatient hospitalization is medically necessary and deemed to ?be ?the clinically appropriate intervention ?at this time.? We will monitor/initiate medications and make changes as indicated.? The patient?s likely length of stay 5-7 days. Coding Level of Care Code Acute Code for Chg Fwd Diagnoses HUI (generalized anxiety disorder) F41.1 Suicidal ideation R45.851 Depression F32.A
[2025-05-20 20:36] VITALS: BP 121/82; PULSE 69; RESP 17; TEMP 36.8; O2SAT 95
[2025-05-21 06:00] VITALS: BP 105/65; PULSE 85; RESP 17; TEMP 36.6; O2SAT 98
[2025-05-21 14:00] VITALS: BP 115/66; PULSE 74; RESP 16; TEMP 36.8; O2SAT 99
--- NOTE | 2025-05-21 19:40 | P.NPUPN_ITS ---
Subjective NPU 2 Subjective: Patient presented today reporting that he is doing okay. He continues to deny any lethality and seems to except the fact that riding 3 suicide notes creates a challenging situation for an early discharge. He endorsed a desire to do therapy for sure once he leaves and was tolerating his medication without issue. He denied any side effects of medication and reports he plans to figure out how to process his emotions and avoid creating these kinds of circumstances after he is discharged. Mental Status Exam 2 MSE Comments: 19-year-old male who was pleasant and co operative on interview who appeared in mild to moderate distress. His gait appeared within normal limits. His hygiene was fair. There was no evidence of any abnormal involuntary motor movements, tics, or tremors appreciated. His speech was normal in regards to rate, rhythm, and prosody. His mood was described as okay. His affect was anxious with moments where he had appeared to be on the verge of crying. His thought process was linear, logical, and goal-directed. His thought content revealed no evidence of suicidal or homicidal ideation. He had acknowledged that he had felt suicidal prior to writing the suicide notes. There was no evidence of delusional thinking. He did not appear to be responding to internal stimuli. He was alert and oriented person, place, time, and situation. His recent remote memory appeared grossly intact. His insight was limited. His judgment was poor. His impulse control appeared fair. Vitals/I&O/Wt Last Vital Signs Temp 98.3 F 05/21/25 14:00 Pulse 74 05/21/25 14:00 Resp 16 05/21/25 14:00 BP 115/66 05/21/25 14:00 Pulse Ox 99 05/21/25 14:00 O2 Del Method Room Air 05/21/25 14:00 Data NPU 05/18/25 19:59 05/18/25 19:59 A&P Assessment and plan 1. HUI (generalized anxiety disorder): 2. Suicidal ideation: 3. Depression: Plan: 19-year-old male admitted after writing several suicide notes and endorsing suicidal ideation shortly after having an acute attack of anxiety currently denying any depression. #1.? Engage patient in individual milieu and group therapy. #2?? Recommend sober living treatment at the highest level of care to which the patient is willing to commit #3??? Restart Buspar and zoloft with increase in zoloft to 75mg to target anxiety and depression. Patient would likely benefit from CBT on outpatient basis. ? #4?? TO-15 minute checks? #5?? Will attempt to gather collateral information PDMP PDMP Reviewed: Not Reviewed Involuntary Hold Information 2 Hold Status: Legal Status: 96 Hour Hold Date/Time Hold Expires: 05/24/25 @ 20:21 Attestations NPU 2 Medical Necessity Statement*: Inpatient hospitalization is medically necessary and deemed to ?be ?the clinically appropriate intervention ?at this time.? We will monitor/initiate medications and make changes as indicated.? The patient?s likely length of stay 4-6 days. Coding Level of Care Code Acute Code for Chg Fwd Diagnoses HUI (generalized anxiety disorder) F41.1 Suicidal ideation R45.851 Depression F32.A
[2025-05-21 20:19] VITALS: BP 131/83; PULSE 69; RESP 19; TEMP 36.6; O2SAT 97
[2025-05-22 06:00] VITALS: BP 114/65; PULSE 68; RESP 17; TEMP 36.5; O2SAT 97; BMI 27.5
[2025-05-22 14:00] VITALS: BP 119/71; PULSE 69; RESP 16; TEMP 36.7; O2SAT 97
--- NOTE | 2025-05-22 16:48 | P.NPUPN_ITS ---
Subjective NPU 2 Subjective: Patient presented today reporting that things were going fairly well. We discussed the likelihood for discharge tomorrow certainly in the next 48 hours. He reports that he is doing well on his medication and we discussed the importance of him being connected with services so that we can feel confident that he would be in treatment and be more likely to be safe moving forward having an outlet moving forward when he is having difficulties. He denied any side effects to the medication. Mental Status Exam 2 MSE Comments: 19-year-old male who was pleasant and co operative on interview who appeared in mild distress. His gait appeared within normal limits. His hygiene was fair. There was no evidence of any abnormal involuntary motor movements, tics, or tremors appreciated. His speech was normal in regards to rate, rhythm, and prosody. His mood was described as . His affect was anxious but improving. His thought process was linear, logical, and goal-directed. His thought content revealed no evidence of suicidal or homicidal ideation. He had acknowledged that he had felt suicidal prior to writing the suicide notes. There was no evidence of delusional thinking. He did not appear to be responding to internal stimuli. He was alert and oriented person, place, time, and situation. His recent remote memory appeared grossly intact. His insight was limited. His judgment was poor. His impulse control appeared fair. Vitals/I&O/Wt Last Vital Signs Temp 98.1 F 05/22/25 14:00 Pulse 69 05/22/25 14:00 Resp 16 05/22/25 14:00 BP 119/71 05/22/25 14:00 Pulse Ox 97 05/22/25 14:00 O2 Del Method Room Air 05/22/25 14:00 Weight last 48 hrs Weight 75.07 kg Data NPU 05/18/25 19:59 05/18/25 19:59 A&P Assessment and plan 1. HUI (generalized anxiety disorder): 2. Suicidal ideation: 3. Depression: Plan: 19-year-old male admitted after writing several suicide notes and endorsing suicidal ideation shortly after having an acute attack of anxiety currently denying any depression. #1.? Engage patient in individual milieu and group therapy. #2?? Recommend sober living treatment at the highest level of care to which the patient is willing to commit #3??? Restart Buspar and zoloft with increase in zoloft to 75mg to target anxiety and depression. Patient would likely benefit from CBT on outpatient basis. ? #4?? TO-15 minute checks? #5?? Will attempt to gather collateral information. PDMP PDMP Reviewed: Not Reviewed Involuntary Hold Information 2 Hold Status: Legal Status: 96 Hour Hold Date/Time Hold Expires: 05/24/25 @ 20:21 Attestations NPU 2 Medical Necessity Statement*: Inpatient hospitalization is medically necessary and deemed to ?be ?the clinically appropriate intervention ?at this time.? We will monitor/initiate medications and make changes as indicated.? The patient?s likely length of stay 1-3 days. Coding Level of Care Code Acute Code for Chg Fwd Diagnoses HUI (generalized anxiety disorder) F41.1 Suicidal ideation R45.851 Depression F32.A
[2025-05-22 20:53] VITALS: BP 127/81; PULSE 66; RESP 18; TEMP 36.7; O2SAT 96
[2025-05-23 06:00] VITALS: BP 99/58; PULSE 76; RESP 16; TEMP 36.5; O2SAT 97
--- NOTE | 2025-05-23 13:27 | P.NPUDS_ITS ---
Diagnoses at Discharge Discharge Diagnosis 1. HUI (generalized anxiety disorder): 2. Suicidal ideation: 3. Depression: Reason for Visit Reason for Visit: MHE Brief History: History of Present Illness Rickie Nunn is a 19 year old male with no prior history of inpatient psychiatric hospitalization. The patient was brought in to the emergency department after he had been found to have written several suicide notes to his grandmother, mother, and his . The patient was admitted involuntarily to the neuropsychiatric unit for further evaluation and treatment. The patient reports that he has a history of problems with controlling his worry. The patient had reported on the day of admission that he had woken up and had a argument with his now common-law over the phone. He had the day off and was going to work on the house that he was building for them to live in when he had been overwhelmed by his thoughts and worries. He reported that on that day he became extremely worried and stated that he did not know how to manage his anxiety. He reports that he walked over to the [facility] nearby and prior to walking over there he proceeded to write a suicide note to his grandmother mother and . He states that he did not have a weapon or anything to harm himself but that he left it at home. He states that he was in the [facility] for a few hours and ultimately came back home at which time his family member had discovered the note and they promptly insisted that he be evaluated in the emergency department. He reports that he has been struggling with an increase in anxiety as he states that around May 2024, he is then common-law had moved out briefly and it prompted the patient to get help to manage his anxiety. He reports that he had been initially receiving treatment with Lexapro and hydroxyzine to manage anxiety and depression but states recently over the past 3 weeks that he was placed on Zoloft with BuSpar. He denies any depressed mood today and reports that generally speaking he is not depressed. He reported 1 previous suicide attempt as he had allegedly tried to hang himself 1 time when he was a teenager. He had reported no previous history of self injury. He generally reports having no change in appetite or energy. He reports good motivation and denied anhedonia. He reports no feelings of hopelessness or worthlessness. He had reported that he had not contemplated suicide until that day yesterday and stated that when he becomes very anxious he feels that he is unable to manage his anxiety and at that moment he thought of her hurting himself. He denies any psychotic symptoms. He denied any history of shine. He does report that his worry often spirals out of control and reports that he sometimes struggles with managing his worries to the extent that he gets tension and becomes more irritable when he worries. He reports that his worry often impedes his ability to concentrate on things currently at hand. He denies any drug or alcohol use. He denied any social anxiety disorder. He denied any symptoms suggestive obsessive-compulsive disorder. The patient does report having significant family stress and states no history of auditory or visual hallucinations. Inpatient psychiatric history: None Outpatient psychiatric history: None reported other than the patient receiving virtual counseling over the past year on an as needed basis. He reports that his previous trials for treating anxiety are managed by his primary care physician with previous trials including Lexapro and hydroxyzine. Medical history: Migraine headaches Surgical history: Pyloric stenosis surgery as child Allergies: morphine Medications: Zoloft 50 mg daily, sumatriptan as needed for migraines, BuSpar 10 mg 3 times a day Substance abuse history: None reported Legal history: None history: None Social history: There is no history of developmental delays or learning problems noted. He was raised by his biological parents until the age of 13 at which time he reports that his mother had abandoned the family and he reports that he moved in with his maternal grandparents. He is the oldest of 6 full siblings and one half sibling. He had denied any history of sexual physical or emotional abuse. He has a 6-month old child from his common-law who he is known for less than a year. He currently lives in [facility]. 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 He currently lives on a large property owned by his maternal grandparents in their home while currently building a house so that his and children can live there with them. His and 6-month-old are currently living with her parents near [place]. He had reported that he was close with his maternal grandfather who in 2021. Involuntary Hold Information Hold Status: Legal Status: 96 Hour Hold Date/Time Hold Expires: 05/24/25 @ 20:21 Mental Status Exam MSE Comments: 19-year-old male who was pleasant and co operative on interview who appeared in mild distress. His gait appeared within normal limits. His hygiene was fair. There was no evidence of any abnormal involuntary motor movements, tics, or tremors appreciated. His speech was normal in regards to rate, rhythm, and prosody. His mood was described as . His affect was anxious but improving. His thought process was linear, logical, and goal-directed. His thought content revealed no evidence of suicidal or homicidal ideation. He had acknowledged that he had felt suicidal prior to writing the suicide notes. There was no evidence of delusional thinking. He did not appear to be responding to internal stimuli. He was alert and oriented person, place, time, and situation. His recent remote memory appeared grossly intact. His insight was limited. His judgment was poor. His impulse control appeared fair. Discharge Data Studies Completed and Pending: Laboratory Results WBC 14.52 10^3/uL (3. 29-11.43) H 05/18/25 19:59 RBC 6.06 10^6/uL (3.8 5-5.65) H 05/18/25 19:59 Hgb 17.30 g/dL (11.27 -16.99) H 05/18/25 19:59 Hct 50.5 % (37-53) 05/18/25 19:59 MCV 83.3 fl (82-101) 05/18/25 19:59 MCH 28.5 pg (27-33) 05/18/25 19:59 MCHC 34.3 g/dL (30-55) 05/18/25 19:59 RDW 12.5 % (12.1-15.1 ) 05/18/25 19:59 Plt Count 303 10^3/cmm (157 -399) 05/18/25 19:59 MPV 9.2 fL (7.4-10.4) 05/18/25 19:59 Neut % (Auto) 68.5 % 05/18/25 19:59 Lymph % (Auto) 23.5 % 05/18/25 19:59 [place] % (Auto) 5.9 % 05/18/25 19:59 Eos % (Auto) 1.0 % 05/18/25 19:59 Baso % (Auto) 0.5 % 05/18/25 19:59 Neut # (Auto) 9.96 10^3/uL (1.8 -7.7) H 05/18/25 19:59 Lymph # (Auto) 3.4 10^3/uL (0.8- 4.8) 05/18/25 19:59 [place] # (Auto) 0.9 10^3/uL (0.2- 0.9) 05/18/25 19:59 Eos # (Auto) 0.2 10^3/uL (0.0- 0.8) 05/18/25 19:59 Baso # (Auto) 0.1 10^3/uL (0.0- 0.1) 05/18/25 19:59 Nucleated RBC % (a uto) 0 % 05/18/25 19:59 Nucleated RBCs # 0.0 /100WBC 05/18/25 19:59 Sodium 140 mmol/L (136-1 45) 05/18/25 19:59 Potassium 4.1 mmol/L (3.5-5 .1) 05/18/25 19:59 Chloride 102 mmol/L (98-10 7) 05/18/25 19:59 Carbon Dioxide 25 mmol/L (22-29) 05/18/25 19:59 Anion Gap 17.1 (5-19) 05/18/25 19:59 BUN 10 mg/dL (6-20) 05/18/25 19:59 Creatinine 0.9 mg/dL (0.7-1. 2) 05/18/25 19:59 GFR Calculation 106.5 mL/min (90- 130) 05/18/25 19:59 Glucose 106 mg/dL (65-115 ) 05/18/25 19:59 Calculated Osmolal ity 289 mOsm/kg (285- 295) 05/18/25 19:59 Calcium 9.9 mg/dL (8.5-10 .5) 05/18/25 19:59 Total Bilirubin 0.4 mg/dL (0.15-1 .2) 05/18/25 19:59 AST 24 U/L (0-40) 05/18/25 19:59 ALT 37 U/L (0-41) 05/18/25 19:59 Alkaline Phosphata se 95 U/L (40-130) 05/18/25 19:59 Total Protein 8.3 g/dL (6.6-8.7 ) 05/18/25 19:59 Albumin 4.7 g/dL (3.5-5.2 ) 05/18/25 19:59 Globulin 3.6 g/dL (1.3-4.6 ) 05/18/25 19:59 Salicylates < 0.3 mg/dL (3-10 ) L 05/18/25 19:59 Urine Opiates Scre en Negative ng/mL (N egative) 05/18/25 20:31 Acetaminophen < 5.0 ug/mL (10-3 0) L 05/18/25 19:59 Ur Barbiturates Sc reen Negative ng/mL (N egative) 05/18/25 20:31 Ur Phencyclidine S crn Negative ng/mL (N egative) 05/18/25 20:31 Ur Amphetamines Sc reen Negative ng/mL (N egative) 05/18/25 20:31 U Benzodiazepines Scrn Negative ng/mL (N egative) 05/18/25 20:31 Urine Cocaine Scre en Negative ng/mL (N egative) 05/18/25 20:31 U Marijuana (THC) Screen Positive ng/mL (N egative) H 05/18/25 20:31 Ethyl Alcohol < 10 mg/dL (0-10) 05/18/25 19:59 Vitals: Last Vital Signs Temp 97.7 F 05/23/25 06:00 Pulse 76 05/23/25 06:00 Resp 16 05/23/25 06:00 BP 99/58 05/23/25 06:00 Pulse Ox 97 05/23/25 06:00 O2 Del Method Room Air 05/23/25 06:00 Discharge Plan Discharge Patient Disposition: Home Condition: Stable Prescriptions: New sertraline [Zoloft] 100 mg tablet 100 mg PO DAILY 30 Days Qty: 30 1RF Rx Instructions: Take with 25 mg tablet for 125 mg total daily. sertraline [Zoloft] 25 mg tablet 25 mg PO DAILY 30 Days Qty: 30 1RF Rx Instructions: Take with 100 mg to make 125 mg total trazodone 50 mg Tablet 50 mg PO BEDTIME PRN (Reason: Sleep) 30 Days Qty: 30 1RF Changed buspirone 10 mg Tablet 10 mg PO TID 30 Days Qty: 90 1RF Discontinued sertraline [Zoloft] 50 mg Tablet 50 mg PO DAILY Discharge Order = DC NOW: Discharge Order (Routine); Ordered 05/23/25 Ordered By: Agustín Seaman Referrals: [facility] [Outside] Celia Guzman FNP [Family Provider, [facility]] Berny Mcgowan FNP [Nurse Practitioner, [facility]] Discharge Diet: Regular Discharge Activity: Resume usual activity Patient Instructions: Opioid Safety, Patient Portal & Angelita Instructions Discharge Attestations NPU Time Spent in Discharge Care*: less than 30 min Specific Discharge Activities: Specific discharge activities: educating patient, discussing with lining caser/social workers/dc planners, documenting/other paperwork and evaluating patient/reviewing data Coding Level of Care Code Acute Code for g Fwd Diagnoses HUI (generalized anxiety disorder) F41.1 Suicidal ideation R45.851 Depression F33.2 Active/Remission status: currently active Depression Type: major depressive disorder Major depression episode severity: severe Major depression recurrence: recurrent Psychotic features: without psychotic features
[2025-05-23 13:41] VITALS: BP 99/58; PULSE 76; RESP 16; TEMP 36.5; O2SAT 97
[2025-05-23 14:00] VITALS: BP 134/79; PULSE 74; RESP 18; TEMP 36.9; O2SAT 98
== END 2025-05-23 15:19 | disposition home or self-care (01) | DRG 885 ==
LOC: ER 20:35 → NP 22:20
PROVIDERS: Admitting Provider Psychiatry & Neurology Psychiatry; Emergency Provider Physician Assistant; Family Provider Nurse Practitioner Family; PCP Registered Nurse; Visit Provider Psychiatry & Neurology Psychiatry
DX: F33.2 Major depressive disorder, recurrent severe without psychotic features (principal); R45.851 Suicidal ideations; Z91.51 Personal history of suicidal behavior; F41.1 Generalized anxiety disorder
CPT/HCPCS: 80053; 80306; 80307; 85025; 97150; 97165; 99285; J9999